=== PATIENT | female | born 1975 | race Caucasian/White ===

== ENCOUNTER 2023-11-21 14:48 | Outpatient (AMB) | payer BC, SELFPAY ==
--- NOTE | 2023-11-21 14:05 | MHC.PC.OV ---
Vital Signs 11/21/23 14:57 Height 5 ft 5 in BP 132/86 Blood Pressure Location Lt brachial Position Sitting Respiration 18 Pulse 97 Pulse Source Pulse Oximeter Temp 98.1 F Temp Source Oral Pulse Oximetry (%) 98 Oxygen Delivery Method Room Air Intake Visit Reasons: ROUTER OPERATOR RADIAL, back and pelvic pain Intake Note: New patient visit Director Of Logistics Required: No Allergies amoxicillin Allergy (Unknown, Verified 11/21/23 15:11) Unknown Tobacco use date assessed: 11/21/23 Dental Screening Dental Screen Date: 11/21/23 Did you have a dental visit in the last 12 months?: Yes Did you have a dental problem in the last 6 months where you did not have access to dental care?: No Was dental information given to patient?: Patient has dentist HPI HPI Comments History of Present Illness Details 48 year old female with a past medical history of chronic back pain, insomnia, anxiety presenting for follow up Patient has history of chronic back pain. Is on chronic opioid therapy. Has seen spine, physiatry and neurosurgery in the past. Is scheduled/plans to see plastic surgery/adolescent medicine specialist, continues to see PSS, requests visit with Dr Diaz. Has been told she needs MRI with contrast. Anxiety/insomnia well controlled on current medications PFSH Medical History (Updated 11/23/23 @ 10:58 by Edilia Cespedes MD) Tarlov cysts Insomnia History of COVID-19 Chronic low back pain Anxiety Surgical History (Updated 11/21/23 @ 14:08 by Kia Felder CMA) History of bilateral breast implants Status post lumbar surgery Family History (Updated 11/21/23 @ 14:10 by Kia Felder CMA) Father Colonic polyp Stroke Social History Housing: House Patient Tobacco Use Status: Never used Tobacco e-Cigarette/Vaping Use: Never Used service: No Current occupational status: employed Current occupation: Administrative Current occupational exposures/hazards: No Cognitive needs: No Hearing needs: No Vision needs: No Questionnaire PHQ-9 Over the last 2 weeks, how often have you been bothered by any of the following problems? 1. Little interest or pleasure in doing things: not at all 2. Feeling down, depressed, or hopeless: more than half the days 3. Trouble falling or staying asleep, or sleeping too much: nearly every day 4. Feeling tired or having little energy: several days 5. Poor appetite or overeating: several days 6. Feeling bad about yourself - or that you are a failure or have let yourself or your family down: several days 7. Trouble concentrating on things, such as reading the newspaper or watching television: several days 8. Moving or speaking so slowly that other people could have noticed. Or the opposite - being so fidgety or restless that you have been moving around a lot more than usual: not at all 9. Thoughts that you would be better off or of hurting yourself in some way: not at all Total score: 9 Depression Screening Interpretation: Positive Depression Screening Follow-up: Declines treatment Depression Screening Done: Yes 40795 - PHQ-9 Billing: Yes Source: Developed by Drs. Devonte Caraballo, Gypsy Smith, Jose Juan Hernandez and colleagues, with an educational nasrin from [employer]. Thrive Questionnaire Date Thrive assessed: 11/21/23 I am a: Patient What is your living situation today?: I have a steady place to live Within the past 12 months, did the food you bought not last and you didn't have the money to get more?: Never true Within the past 12 months, did you worry whether your food would run out before you got money to buy more?: Never true Do you have trouble paying for medicines?: No Do you have trouble getting transportation to medical appointments?: No Do you have trouble paying your heating and electricity bill?: No Do you have trouble taking care of your child, family member or friend?: No Do you have trouble with day-to-day activities such as bathing, preparing meals, shopping, managing finances, etc.?: No Are you currently unemployed and looking for a job?: No Are you interested in more education?: No Please select the resources that you would like help with: None Currently or been in a relationship where the following occur: no concerns reported THRIVE Score: 0 AUDIT C Alcohol Use Questionnaire (AUDIT-C) 1. How often do you have a drink containing alcohol?: Never 3. How often do you have six or more drinks on one occasion?: Never Total Score: 0 HENRY-7 AMB Questionnaire HENRY-7 Date HENRY - 7 assessed: 11/21/23 Feeling nervous, anxious, or on edge: 3 = Nearly every day Not being able to stop or control worryin = Nearly every day Worrying too much about different things: 3 = Nearly every day Trouble relaxin = More than half the days Being so restless that it is hard to sit still: 1 = Several days Becoming easily annoyed or irritable: 1 = Several days Feeling afraid as if something awful might happen: 0 = Not at all Total HENRY-7 score (0-4 normal; 5-9 mild; 10-14 moderate; 15-21 severe): 13 Source: Developed by Drs. Devonte Caraballo, Gypsy Smith, Jose Juan Hernandez and colleagues, with an educational nasrin from [employer]. HENRY-7 Assessment Billing HENRY-7 Assessment Tool: HENRY-7 Assessment 95440 Review of Systems Const Details: see HPI Physical exam (Primary Care) Vital Signs: Last Vital Signs Temp 98.1 F 11/21/23 14:57 Pulse 97 11/21/23 14:57 Resp 18 11/21/23 14:57 BP 132/86 11/21/23 14:57 Pulse Ox 98 11/21/23 14:57 Oxygen Delivery Method Room Air 11/21/23 14:57 PHYSICAL EXAM: GENERAL: Alert and oriented x 3. NAD EYES: EOMI. Anicteric. HENT: Moist mucous membranes. No scleral icterus. No cervical lymphadenopathy. LUNGS: Clear to auscultation bilaterally. CARDIOVASCULAR: Regular rate and rhythm. No murmur. ABDOMEN: Soft, non-tender +bs EXTREMITIES: No edema. Non-tender. SKIN: No rashes or lesions. Warm. NEUROLOGIC: No focal neurological deficits. PSYCHIATRIC: Cooperative. Appropriate mood and affect Tobacco/Smoking Status: Tobacco use Status Tobacco use date assessed 11/21/23 11/21/23 15:04 Patient Tobacco Use Status Never used Tobacco 11/21/23 15:04 e-Cigarette/Vaping Use Never Used 11/21/23 15:04 PHQ-9: PHQ-9 Score PHQ-9: Total score 9 11/21/23 16:15 Depression Screening Interpretation: Positive Depression Screening Follow-up: Declines treatment Thrive Assessment: Date of Thrive Assessment Date Thrive assessed 11/21/23 11/21/23 16:15 Currently or been in a relationship where the following occur: no concerns reported Assessment and Plan Assessment & Plan (1) Low back pain: Code(s): M54.50 - Low back pain, unspecified Qualifiers: Chronicity: chronic Back pain laterality: bilateral Sciatica presence: with sciatica Sciatica laterality: bilateral sciatica Qualified Code(s): M54.42 - Lumbago with sciatica, left side; M54.41 - Lumbago with sciatica, right side; G89.29 - Other chronic pain (2) Peripheral neuropathy: Code(s): G62.9 - Polyneuropathy, unspecified Qualifiers: Peripheral neuropathy type: polyneuropathy, unspecified Qualified Code(s): G62.9 - Polyneuropathy, unspecified (3) Piriformis syndrome of left side: Code(s): G57.02 - Lesion of sciatic nerve, left lower limb Orders: Orders Complete Blood Count Auto Diff 11/21/23 F41.9 - Anxiety disorder, unspecified, G89.4 - Chronic pain syndrome, M35.3 - Polymyalgia rheumatica, Z13.0 - Encounter for screening for diseases of the blood and blood-forming organs and certain disorders involving the immune mechanism, Z13.220 - Encounter for screening for lipoid disorders REZA Reflex Titer and Pattern 11/21/23 F41.9 - Anxiety disorder, unspecified, G89.4 - Chronic pain syndrome, M35.3 - Polymyalgia rheumatica, Z13.0 - Encounter for screening for diseases of the blood and blood-forming organs and certain disorders involving the immune mechanism, Z13.220 - Encounter for screening for lipoid disorders Erythrocyte Sedimentation Rate 11/21/23 F41.9 - Anxiety disorder, unspecified, G89.4 - Chronic pain syndrome, M35.3 - Polymyalgia rheumatica, Z13.0 - Encounter for screening for diseases of the blood and blood-forming organs and certain disorders involving the immune mechanism, Z13.220 - Encounter for screening for lipoid disorders Lyme IgG/IgM w/reflex to WB 11/21/23 F41.9 - Anxiety disorder, unspecified, G89.4 - Chronic pain syndrome, M35.3 - Polymyalgia rheumatica, Z13.0 - Encounter for screening for diseases of the blood and blood-forming organs and certain disorders involving the immune mechanism, Z13.220 - Encounter for screening for lipoid disorders Urine Culture 11/21/23 N39.0 - Urinary tract infection, site not specified MR lumbar spine wo/w con 11/21/23 G57.02 - Lesion of sciatic nerve, left lower limb Comprehensive Met. Panel 11/21/23 F41.9 - Anxiety disorder, unspecified, G89.4 - Chronic pain syndrome, M35.3 - Polymyalgia rheumatica, Z13.0 - Encounter for screening for diseases of the blood and blood-forming organs and certain disorders involving the immune mechanism, Z13.220 - Encounter for screening for lipoid disorders Lipid Panel 11/21/23 F41.9 - Anxiety disorder, unspecified, G89.4 - Chronic pain syndrome, M35.3 - Polymyalgia rheumatica, Z13.0 - Encounter for screening for diseases of the blood and blood-forming organs and certain disorders involving the immune mechanism, Z13.220 - Encounter for screening for lipoid disorders Referrals Orthopedics Referral F41.9 - Anxiety disorder, unspecified, G57.02 - Lesion of sciatic nerve, left lower limb, G89.4 - Chronic pain syndrome, M35.3 - Polymyalgia rheumatica, Z13.0 - Encounter for screening for diseases of the blood and blood-forming organs and certain disorders involving the immune mechanism, Z13.220 - Encounter for screening for lipoid disorders Orthopedics Referral G57.02 - Lesion of sciatic nerve, left lower limb, G62.9 - Polyneuropathy, unspecified, M54.50 - Low back pain, unspecified Plastic Surgery Referral G57.02 - Lesion of sciatic nerve, left lower limb, G62.9 - Polyneuropathy, unspecified Medications: New hydroxyzine HCl 50 mg PO BID 180 tabs 3RF 90 days Coding Level of Care Code Tele Est Pt Level 4 (40605) Diagnoses Chronic bilateral low back pain with bilateral sciatica M54.42; M54.41; G89.29 Chronicity: chronic Back pain laterality: bilateral Sciatica presence: with sciatica Sciatica laterality: bilateral sciatica Peripheral polyneuropathy G62.9 Peripheral neuropathy type: polyneuropathy, unspecified Piriformis syndrome of left side G57.02 Additional Codes HENRY-7 Assessment Billing - HENRY-7 Assessment Tool: HENRY-7 Assessment 88962 ([id number])
[2023-11-21 14:57] VITALS: BP 132/86; PULSE 97; RESP 18; TEMP 36.7; O2SAT 98
== END 2023-11-21 15:22 | disposition home or self-care (01) ==
PROVIDERS: PCP Internal Medicine; Visit Provider Internal Medicine
DX: M54.42 Lumbago with sciatica, left side (principal); M54.41 Lumbago with sciatica, right side; G89.29 Other chronic pain; G62.9 Polyneuropathy, unspecified; G57.02 Lesion of sciatic nerve, left lower limb
CPT/HCPCS: 99214

== ENCOUNTER 2024-02-09 08:26 | Outpatient (AMB) | payer BC, SELFPAY ==
--- NOTE | 2024-02-09 08:29 | MHC.PC.OV ---
Vital Signs 02/09/24 08:34 Height 5 ft 5 in Weight 166 lb BMI 27.6 BP 122/80 Blood Pressure Location Rt brachial Position Sitting Pulse 83 Pulse Source Pulse Oximeter Pulse Oximetry (%) 99 Oxygen Delivery Method Room Air Intake Visit Reasons: CPE Intake Note: Jenny is a 49 year old female who presents to the office today for a CPE. Allergies amoxicillin Allergy (Unknown, Verified 02/09/24 08:29) Unknown Tobacco use date assessed: 02/09/24 Dental Screening Dental Screen Date: 02/09/24 Did you have a dental visit in the last 12 months?: Yes Did you have a dental problem in the last 6 months where you did not have access to dental care?: Yes Was dental information given to patient?: Patient has dentist HPI HPI Comments History of Present Illness Details 49 year old female with a past medical history of chronic back pain, insomnia, anxiety presenting for physical exam Patient has history of chronic back pain. Is on chronic opioid therapy. Has seen spine, physiatry and neurosurgery in the past. Is scheduled/plans to see plastic surgery/transportation maintenance specialist, continues to see PSS, requests visit with Dr Diaz. Has been told she needs MRI with contrast. Previous MRI in [facility] Anxiety/insomnia well controlled on current medications Mammo-Jul 2023. DXA Colon cancer screening: Colonoscopy Wills 2021 INSPECTOR OUTSIDE STEAM DISTRIBUTION: Edilia ZAMUDIO CONSTITUTIONAL: Denies weight loss, fever and chills. HEENT: Denies changes in vision and hearing. RESPIRATORY: Denies SOB and cough. CV: Denies palpitations and CP GI: Denies abdominal pain, nausea, vomiting and diarrhea. : Denies dysuria and urinary frequency. MSK: Denies new myalgia and joint pain. SKIN: Denies rash and pruritus. NEUROLOGICAL: Denies headache PSYCHIATRIC: Denies recent changes in mood. PHYSICAL EXAM: GENERAL: Alert and oriented x 3. NAD EYES: EOMI. Anicteric. HENT: Moist mucous membranes. No scleral icterus. No cervical lymphadenopathy. LUNGS: Clear to auscultation bilaterally. CARDIOVASCULAR: Regular rate and rhythm. No murmur. No JVD. ABDOMEN: Soft, non-tender +bs EXTREMITIES: No edema. Non-tender. SKIN: No rashes or lesions. Warm. NEUROLOGIC: No focal neurological deficits. CN II-XII grossly intact PSYCHIATRIC: Cooperative. Appropriate mood and affect [facility] Medical History (Updated 02/22/24 @ 05:28 by Edilia Cespedes MD) Tarlov cysts Insomnia History of COVID-19 Chronic low back pain Anxiety Surgical History History of bilateral breast implants Status post lumbar surgery Family History Father Colonic polyp Stroke Social History Housing: House Patient Tobacco Use Status: Never used Tobacco e-Cigarette/Vaping Use: Never Used service: No Current occupational status: employed Current occupation: Administrative Current occupational exposures/hazards: No Cognitive needs: No Hearing needs: No Vision needs: No Questionnaire PHQ-9 Over the last 2 weeks, how often have you been bothered by any of the following problems? 1. Little interest or pleasure in doing things: not at all 2. Feeling down, depressed, or hopeless: more than half the days 3. Trouble falling or staying asleep, or sleeping too much: nearly every day 4. Feeling tired or having little energy: several days 5. Poor appetite or overeating: several days 6. Feeling bad about yourself - or that you are a failure or have let yourself or your family down: several days 7. Trouble concentrating on things, such as reading the newspaper or watching television: several days 8. Moving or speaking so slowly that other people could have noticed. Or the opposite - being so fidgety or restless that you have been moving around a lot more than usual: not at all 9. Thoughts that you would be better off or of hurting yourself in some way: not at all Total score: 9 Depression Screening Interpretation: Positive Depression Screening Follow-up: Declines treatment Depression Screening Done: Yes 20617 - PHQ-9 Billing: Yes Source: Developed by Drs. Devonte Caraballo, Gypsy Smith, Jose Juan Hernandez and colleagues, with an educational nasrin from [employer]. Thrive Questionnaire Date Thrive assessed: 02/09/24 I am a: Patient What is your living situation today?: I have a steady place to live Within the past 12 months, did the food you bought not last and you didn't have the money to get more?: Never true Within the past 12 months, did you worry whether your food would run out before you got money to buy more?: Never true Do you have trouble paying for medicines?: No Do you have trouble getting transportation to medical appointments?: No Do you have trouble paying your heating and electricity bill?: No Do you have trouble taking care of your child, family member or friend?: No Do you have trouble with day-to-day activities such as bathing, preparing meals, shopping, managing finances, etc.?: No Are you currently unemployed and looking for a job?: No Are you interested in more education?: No Please select the resources that you would like help with: None THRIVE Score: 0 AUDIT C Alcohol Use Questionnaire (AUDIT-C) 1. How often do you have a drink containing alcohol?: Never 3. How often do you have six or more drinks on one occasion?: Never Total Score: 0 HENRY-7 AMB Questionnaire HENRY-7 Date HENRY - 7 assessed: 02/09/24 Feeling nervous, anxious, or on edge: 3 = Nearly every day Not being able to stop or control worryin = Nearly every day Worrying too much about different things: 3 = Nearly every day Trouble relaxin = More than half the days Being so restless that it is hard to sit still: 1 = Several days Becoming easily annoyed or irritable: 1 = Several days Feeling afraid as if something awful might happen: 0 = Not at all Total HENRY-7 score (0-4 normal; 5-9 mild; 10-14 moderate; 15-21 severe): 13 Source: Developed by Drs. Devonte Caraballo, Gypsy Smith, Jose Juan Hernandez and colleagues, with an educational nasrin from [employer]. HENRY-7 Assessment Billing HENRY-7 Assessment Tool: HENRY-7 Assessment 26768 Physical exam (Primary Care) Vital Signs: Last Vital Signs Pulse 83 02/09/24 08:34 BP 122/80 02/09/24 08:34 Pulse Ox 99 02/09/24 08:34 Oxygen Delivery Method Room Air 02/09/24 08:34 BMI result Body Mass Index 27.6 Tobacco/Smoking Status: Tobacco use Status Tobacco use date assessed 02/09/24 02/09/24 08:37 Patient Tobacco Use Status Never used Tobacco 02/09/24 08:37 e-Cigarette/Vaping Use Never Used 02/09/24 08:37 PHQ-9: PHQ-9 Score PHQ-9: Total score 9 02/22/24 05:29 Depression Screening Interpretation: Positive Depression Screening Follow-up: Declines treatment Thrive Assessment: Date of Thrive Assessment Date Thrive assessed 02/09/24 02/09/24 08:37 Assessment and Plan Assessment & Plan (1) Physical exam: Code(s): Z00.00 - Encounter for general adult medical examination without abnormal findings Plan: Preventive measures for age discussed (2) Low back pain: Code(s): M54.50 - Low back pain, unspecified Qualifiers: Back pain laterality: bilateral Chronicity: chronic Sciatica laterality: bilateral sciatica Sciatica presence: with sciatica Qualified Code(s): M54.42 - Lumbago with sciatica, left side; M54.41 - Lumbago with sciatica, right side; G89.29 - Other chronic pain (3) Piriformis syndrome of left side: Code(s): G57.02 - Lesion of sciatic nerve, left lower limb Medications: Changed From hydroxyzine HCl 50 mg PO BID 90 days 180 tabs 3RF To hydroxyzine HCl 50 mg PO QID 360 tabs 3RF 90 days From baclofen 10 mg PO TID 90 days PRN 270 tabs 1RF for muscle spasm To baclofen 20 mg (2 x 10 mg) PO TID PRN 540 tabs 3RF for muscle spasm 90 days Refilled zolpidem 10 mg PO BEDTIME PRN 28 tabs 0RF insomnia 28 days Coding Level of Care Code Est Pt Prev Care 40-64y(15991) Diagnoses Physical exam Z00.00 Chronic bilateral low back pain with bilateral sciatica M54.42; M54.41; G89.29 Back pain laterality: bilateral Chronicity: chronic Sciatica laterality: bilateral sciatica Sciatica presence: with sciatica Piriformis syndrome of left side G57.02 Additional Codes HENRY-7 Assessment Billing - HENRY-7 Assessment Tool: HENRY-7 Assessment 74694 ([id number])
[2024-02-09 08:34] VITALS: BP 122/80; PULSE 83; O2SAT 99; BMI 27.6
== END 2024-02-09 09:11 | disposition home or self-care (01) ==
PROVIDERS: PCP Internal Medicine; Visit Provider Internal Medicine
DX: Z00.00 Encounter for general adult medical examination without abnormal findings (principal); M54.42 Lumbago with sciatica, left side; M54.41 Lumbago with sciatica, right side; G89.29 Other chronic pain; G57.02 Lesion of sciatic nerve, left lower limb
CPT/HCPCS: 99396

== ENCOUNTER 2024-02-12 08:45 | Outpatient (REF) | payer BC, SELFPAY ==
[2024-02-12 11:11] LABS: MANUAL DIFF FLAG NO
[2024-02-12 11:31] LABS: Basophils Absolute Auto 0.1 X10*3/uL (0.0-0.2); Basophils Percent Auto 1.2 % (0-2); Eosinophils Absolute Auto 0.2 X10*3/uL (0.0-0.4); Eosinophils Percent Auto 4.1 % (0-4); Hematocrit 39.2 % (37.0-47.0); Hemoglobin 13.1 g/dl (12.0-16.0); Imm Gran Abs Auto 0.02 X10*3/uL (0.00-0.03); Imm Gran Pct Auto 0.3 % (0.0-0.4); Lymphocytes Absolute Auto 1.7 X10*3/uL (1.2-4.9); Lymphocytes Percent Auto 29.4 % (20-40); Mean Corpuscular HGB Conc 33.4 g/dl (31.0-35.0); Mean Corpuscular Hemoglobin 31.8 pg (27.0-33.0); Mean Corpuscular Volume 95.1 fL (80.0-98.0); Mean Platelet Volume 9.2 fL (9.4-12.3); Monocytes Absolute Auto 0.4 X10*3/uL (0.1-1.2); Monocytes Percent Auto 6.3 % (2-11); Neutrophils Absolute Auto 3.5 x10*3/uL (2.0-8.3); Neutrophils Percent Auto 58.7 % (45-73); Platelet Count 272 X10*3/uL (160-400); Red Blood Count 4.12 X10*6/uL (4.20-5.50); Red Cell Distribution Width 11.9 % (11.0-16.0); White Blood Count 5.9 X10*3/uL (4.8-10.8)
[2024-02-12 11:44] LABS: Alanine Aminotransferase 22 U/L (0-31); Albumin Level 3.7 g/dL (3.5-5.0); Alkaline Phosphatase 42 U/L (39-117); Anion Gap 11 (12-20); Aspartate Amino Transferase 16 U/L (5-31); Bilirubin Total 0.7 mg/dL (0.0-1.0); Blood Urea Nitrogen 14 mg/dL (9-16); Calcium 9.3 mg/dL (8.4-10.2); Carbon Dioxide 27 mmol/L (22-29); Chloride 105 mmol/L (96-108); Cholesterol 152 mg/dL (<200); Estimated Glomerular Filt Rate > 60; Glucose Random 91 mg/dL (60-115); HDL Cholesterol 44 mg/dL (>40); LDL Cholesterol Calculated 92 mg/dL (<100); Potassium 4.2 mmol/L (3.3-5.1); Sodium 139 mmol/L (135-145); Total Protein 6.3 g/dL (6.5-8.0); Triglycerides 82 mg/dL (<150)
[2024-02-12 12:10] LABS: Erythrocyte Sedimentation Rate 6 MM/HR (0-20)
[2024-02-13 08:33] LABS: Lyme Abs Screen <0.90 index
[2024-02-17 09:04] LABS: Anti Nuclear Antibody Screen NEGATIVE (NEGATIVE)
== END 2024-02-12 08:46 | disposition home or self-care (01) ==
LOC: HO.WFDLDS 08:45
PROVIDERS: Visit Provider Internal Medicine
DX: Z13.0 Encounter for screening for diseases of the blood and blood-forming organs and certain disorders involving the immune mechanism (principal); G89.4 Chronic pain syndrome; F41.9 Anxiety disorder, unspecified; Z13.220 Encounter for screening for lipoid disorders; M35.3 Polymyalgia rheumatica; N39.0 Urinary tract infection, site not specified
CPT/HCPCS: 36415; 80053; 80061; 85025; 85652; 86038; 86617; 86618; 87086

== ENCOUNTER 2024-03-09 14:40 | Outpatient (AMB) | payer BC, SELFPAY ==
--- NOTE | 2024-03-09 14:58 | A.OFFPC_ITS ---
Vital Signs 03/09/24 15:03 BP 124/86 Blood Pressure Location Rt brachial Position Sitting Pulse 98 Pulse Source Pulse Oximeter Pulse Oximetry (%) 98 Oxygen Delivery Method Room Air Intake Visit Reasons: Fu pelvic pain Intake Note: Patient is here to following up for pelvic pain. Patient reports she has a couple of questions for her provider Panel Lay Up Worker Required: No Accompanied by: Self / Same As Patient Allergies amoxicillin Allergy (Unknown, Verified 03/09/24 15:01) Unknown Tobacco use date assessed: 02/09/24 Dental Screening Dental Screen Date: 02/09/24 HPI HPI Comments History of Present Illness Details 49 year old female with a past medical h istory of chronic back pain, insomnia, anxiety presenting for for follow up Recent flare in severity of left piriformis pain. Her medication is not lasting 6 hours. She spends hours a day laying on her stomach because that is the position that the pain feels less. Patient has history of chronic back pain. Is on chronic opioid therapy. Has seen spine, physiatry and neurosurgery in the past. Is scheduled/plans to see plastic surgery/extension service specialist in charge, continues to see PSS. She has chronic pelvic pain, chronic sacral pain h/o S1S2 procedure. Anxiety/insomnia well controlled on current medications Mammo-Jul 2023. DXA Colon cancer screening: Colonoscopy Wills 2021 PNEUMATIC DEICER INSPECTOR: Edilia Hernández upcoming Dr Merissa ZAMUDIO see HPI PHYSICAL EXAM: GENERAL: Alert and oriented x 3. NAD EYES: EOMI. Anicteric. HENT: Moist mucous membranes. No scleral icterus. No cervical lymphadenopathy. LUNGS: Clear to auscultation bilaterally. CARDIOVASCULAR: Regular rate and rhythm. No murmur. No JVD. ABDOMEN: Soft, non-tender +bs MSK: Tender coccyx, left piriformis on palpation. No redness or warmth. EXTREMITIES: No edema. Non-tender. SKIN: No rashes or lesions. Warm. NEUROLOGIC: No focal neurological deficits. CN II-XII grossly intact PSYCHIATRIC: Cooperative. Appropriate mood and affect [facility] Medical History Tarlov cysts Insomnia History of COVID-19 Chronic low back pain Anxiety Surgical History History of bilateral breast implants Status post lumbar surgery Family History Father Colonic polyp Stroke Social History Housing: House Patient Tobacco Use Status: Never used Tobacco e-Cigarette/Vaping Use: Never Used service: No Current occupational status: employed Current occupation: Administrative Current occupational exposures/hazards: No Cognitive needs: No Hearing needs: No Vision needs: No Questionnaire PHQ-9 Over the last 2 weeks, how often have you been bothered by any of the following problems? 1. Little interest or pleasure in doing things: not at all 2. Feeling down, depressed, or hopeless: nearly every day 3. Trouble falling or staying asleep, or sleeping too much: nearly every day 4. Feeling tired or having little energy: not at all 5. Poor appetite or overeating: not at all 6. Feeling bad about yourself - or that you are a failure or have let yourself or your family down: not at all 7. Trouble concentrating on things, such as reading the newspaper or watching television: nearly every day 8. Moving or speaking so slowly that other people could have noticed. Or the opposite - being so fidgety or restless that you have been moving around a lot more than usual: not at all 9. Thoughts that you would be better off or of hurting yourself in some way: not at all Total score: 9 Depression Screening Interpretation: Positive Depression Screening Follow-up: Existing condition Depression Screening Done: Yes 90185 - PHQ-9 Billing: Yes Source: Developed by Drs. Devonte Caraballo, Gyspy Smith, Jose Juan Hernandez and colleagues, with an educational nasrin from [employer]. Thrive Questionnaire Date Thrive assessed: 03/09/24 I am a: Patient What is your living situation today?: I have a steady place to live Within the past 12 months, did the food you bought not last and you didn't have the money to get more?: Never true Within the past 12 months, did you worry whether your food would run out before you got money to buy more?: Never true Do you have trouble paying for medicines?: No Do you have trouble getting transportation to medical appointments?: No Do you have trouble paying your heating and electricity bill?: No Do you have trouble taking care of your child, family member or friend?: I choose not to answer this question THRIVE Score: 0 HENRY-7 AMB Questionnaire HENRY-7 Date HENRY - 7 assessed: 02/09/24 Source: Developed by Drs. Devonte Caraballo, Gypsy Smith, Jose Juan Hernandez and colleagues, with an educational nasrin from [employer]. Physical exam (Primary Care) Vital Signs: Last Vital Signs Pulse 98 03/09/24 15:03 BP 124/86 03/09/24 15:03 Pulse Ox 98 03/09/24 15:03 Oxygen Delivery Method Room Air 03/09/24 15:03 Tobacco/Smoking Status: Tobacco use Status Tobacco use date assessed 02/09/24 03/09/24 15:03 Patient Tobacco Use Status Never used Tobacco 03/09/24 15:03 e-Cigarette/Vaping Use Never Used 03/09/24 15:03 PHQ-9: PHQ-9 Score PHQ-9: Total score 9 03/09/24 15:03 Depression Screening Interpretation: Positive Depression Screening Follow-up: Existing condition Thrive Assessment: Date of Thrive Assessment Date Thrive assessed 03/09/24 03/09/24 15:03 Assessment and Plan Assessment & Plan (1) Coccyx pain: Code(s): M53.3 - Sacrococcygeal disorders, not elsewhere classified Plan: Out of network referral is still pending to Dr Steward Will increase oxycodone to q4h from q6h. Aware of risk of dependence and addiction (2) Piriformis syndrome of left side: Code(s): G57.02 - Lesion of sciatic nerve, left lower limb (3) DDD (degenerative disc disease), lumbosacral: Code(s): M51.37 - Other intervertebral disc degeneration, lumbosacral region Medications: Changed From oxycodone Partial Fill upon patient request. 10 mg PO Q6H PRN 112 tabs 0RF pain To oxycodone Partial Fill upon patient request. 10 mg PO Q4H PRN 168 tabs 0RF pain Refilled zolpidem 10 mg PO BEDTIME 28 days PRN 28 tabs 0RF insomnia Coding Level of Care Code Est Pt Level 4 (42352) Diagnoses Coccyx pain M53.3 Piriformis syndrome of left side G57.02 DDD (degenerative disc disease), lumbosacral M51.37
[2024-03-09 15:03] VITALS: BP 124/86; PULSE 98; O2SAT 98
== END 2024-03-09 16:52 | disposition home or self-care (01) ==
PROVIDERS: PCP Internal Medicine; Visit Provider Internal Medicine
DX: M53.3 Sacrococcygeal disorders, not elsewhere classified (principal); G57.02 Lesion of sciatic nerve, left lower limb; M51.37 Other intervertebral disc degeneration, lumbosacral region
CPT/HCPCS: 99214

== ENCOUNTER 2024-08-17 08:53 | Outpatient (AMB) | payer BC, SELFPAY ==
--- NOTE | 2024-08-17 08:55 | MHC.PC.OV ---
Vital Signs 08/17/24 08:59 Height 5 ft 5 in Weight 169 lb 2 oz BMI 28.1 BP 118/70 Blood Pressure Location Lt brachial Position Sitting Respiration 12 Pulse 77 Pulse Source Pulse Oximeter Temp 97.1 F Temp Source Oral Pulse Oximetry (%) 98 Oxygen Delivery Method Room Air Intake Visit Reasons: f/u meds, bloodwork Intake Note: follow up on meds Assistant Finance Director Required: No Allergies amoxicillin Allergy (Unknown, Verified 08/17/24 08:56) Unknown Tobacco use date assessed: 08/17/24 Dental Screening Dental Screen Date: 08/17/24 Did you have a dental visit in the last 12 months?: No Did you have a dental problem in the last 6 months where you did not have access to dental care?: No Was dental information given to patient?: Patient has dentist HPI HPI Comments History of Present Illness Details 49 year old female with a past medical history of chronic back pain, insomnia, anxiety presenting for for follow up MSK: left piriformis/SI pain, groin. On chronic opioid therapy which helps but pain levels are still often 7-10. She spends hours a day laying on her stomach because that is the position that the pain feels less. Patient has history of chronic back pain. Has seen spine, physiatry and neurosurgery in the past. Is scheduled/plans to see plastic surgery/field property loss specialist in [place], continues to see PSS. She has chronic pelvic pain, chronic sacral pain h/o S1S2 procedure. Anxiety/insomnia well controlled on current medications Mammo-Jul 2023. DXA Colon cancer screening: Colonoscopy Wills 2021 JAVASCRIPT DEVELOPER: Edilia Hernández upcoming Dr Craven ROS see HPI PHYSICAL EXAM: GENERAL: Alert and oriented x 3. NAD EYES: EOMI. Anicteric. HENT: Moist mucous membranes. No scleral icterus. No cervical lymphadenopathy. LUNGS: Clear to auscultation bilaterally. CARDIOVASCULAR: Regular rate and rhythm. No murmur. No JVD. ABDOMEN: Soft, non-tender +bs MSK: Tender coccyx, left piriformis on palpation. No redness or warmth. EXTREMITIES: No edema. Non-tender. SKIN: No rashes or lesions. Warm. NEUROLOGIC: No focal neurological deficits. CN II-XII grossly intact PSYCHIATRIC: Cooperative. Appropriate mood and affect [facility] Medical History Tarlov cysts Insomnia History of COVID-19 Chronic low back pain Anxiety Surgical History History of bilateral breast implants Status post lumbar surgery Family History Father Colonic polyp Stroke Social History Housing: House Patient Tobacco Use Status: Never used Tobacco e-Cigarette/Vaping Use: Never Used service: No Current occupational status: employed Current occupation: Administrative Current occupational exposures/hazards: No Cognitive needs: No Hearing needs: No Vision needs: No Questionnaire PHQ-9 Over the last 2 weeks, how often have you been bothered by any of the following problems? 89452 - PHQ-9 Billing: Patient declined-do not bill Source: Developed by Drs. Devonte Caraballo, Gypsy Smith, Jose Juan Hernandez and colleagues, with an educational nasrin from [employer]. Thrive Questionnaire Date Thrive assessed: 08/17/24 I am a: Patient What is your living situation today?: I have a steady place to live Within the past 12 months, did the food you bought not last and you didn't have the money to get more?: Never true Within the past 12 months, did you worry whether your food would run out before you got money to buy more?: Never true Do you have trouble paying for medicines?: No Do you have trouble getting transportation to medical appointments?: No Do you have trouble paying your heating and electricity bill?: No Do you have trouble taking care of your child, family member or friend?: No Do you have trouble with day-to-day activities such as bathing, preparing meals, shopping, managing finances, etc.?: No THRIVE Score: 0 AUDIT C Alcohol Use Questionnaire (AUDIT-C) 1. How often do you have a drink containing alcohol?: Never Total Score: 0 HENRY-7 AMB Questionnaire HENRY-7 Date HENRY - 7 assessed: 08/17/24 Feeling nervous, anxious, or on edge: 0 = Not at all Not being able to stop or control worryin = Not at all Worrying too much about different things: 1 = Several days Trouble relaxin = Several days Being so restless that it is hard to sit still: 3 = Nearly every day Becoming easily annoyed or irritable: 1 = Several days Feeling afraid as if something awful might happen: 0 = Not at all Total HENRY-7 score (0-4 normal; 5-9 mild; 10-14 moderate; 15-21 severe): 6 Source: Developed by Drs. Devonte Caraballo, Gypsy Smith, Jose Juan Hernandez and colleagues, with an educational nasrin from [employer]. HENRY-7 Assessment Billing HENRY-7 Assessment Tool: HENRY-7 Assessment 31543 Physical exam (Primary Care) Vital Signs: Last Vital Signs Temp 97.1 F 08/17/24 08:59 Pulse 77 08/17/24 08:59 Resp 12 08/17/24 08:59 BP 118/70 08/17/24 08:59 Pulse Ox 98 08/17/24 08:59 Oxygen Delivery Method Room Air 08/17/24 08:59 BMI result Body Mass Index 28.1 Tobacco/Smoking Status: Tobacco use Status Tobacco use date assessed 08/17/24 08/17/24 09:01 Patient Tobacco Use Status Never used Tobacco 08/17/24 09:01 e-Cigarette/Vaping Use Never Used 08/17/24 09:01 Thrive Assessment: Date of Thrive Assessment Date Thrive assessed 08/17/24 08/17/24 09:01 Coding Level of Care Code Est Pt Level 4 (74726) Complex EM visit Add On G2211 Diagnoses Degeneration of intervertebral disc of lumbosacral region with discogenic back pain and lower extremity pain M51.372 Disc-related pain type: discogenic back pain and lower extremity pain Additional Codes HENRY-7 Assessment Billing - HENRY-7 Assessment Tool: HENRY-7 Assessment 48478 ([id number]) Assessment & Plan Assessment & Plan (1) DDD (degenerative disc disease), lumbosacral: Code(s): M51.37 - Other intervertebral disc degeneration, lumbosacral region Category: Medical Qualifiers: Disc-related pain type: discogenic back pain and lower extremity pain Qualified Code(s): M51.372 - Other intervertebral disc degeneration, lumbosacral region with discogenic back pain and lower extremity pain Plan: Suboptimal pain relief. Start morphine 30mg daily 24h Continue oxycodone IR, tramadol (hopefully we can stop the tramadol in the near future) Upcoming computer operations analyst, field property loss specialist consult Orders: Orders Complete Blood Count Auto Diff Today M51.37 - Other intervertebral disc degeneration, lumbosacral region, M53.3 - Sacrococcygeal disorders, not elsewhere classified Comprehensive Met. Panel Today M51.37 - Other intervertebral disc degeneration, lumbosacral region, M53.3 - Sacrococcygeal disorders, not elsewhere classified Medications: New morphine ER Partial Fill upon patient request. 30 mg PO DAILY 28 caps 0RF Refilled tramadol 50 mg PO Q8H PRN 84 tabs 0RF pain hydroxyzine HCl 50 mg PO QID 360 tabs 3RF 90 days
[2024-08-17 08:59] VITALS: BP 118/70; PULSE 77; RESP 12; TEMP 36.2; O2SAT 98; BMI 28.1
--- OUTSIDE RECORDS SUMMARY | 2024-08-17 09:23 | XMS_ITS ---
Author Organization [facility] Address [address] [place] [address] Care Team Providers Care Stereotyper Helper Name Role Phone MARIBEL CEJA Unavailable [phone] QUIN CEJA Unavailable [phone] REASON FOR VISIT Pt presents for sema .25mg inj, tolerated well. Pt stated .5mg inj made her appetite too supressed & wanted to try biweekly injs. MEDICATIONS Medication SIG (Take, Route, Fr equency, Duration) [...] needed for nausea Orally Once a day for 30 days 12/10/2023 Ac tive Encounters Encounter Location Date Provider Diagnosis [facility] [address] [place] [id number] 02/13/2024 QUIN CEJA PLAN OF TREATMENT No Information MEDICATIONS ADMINISTERED Medication Instructions Date of Administration Dosage Notes Semaglutide 02/13/2024 .25 mg Progress Notes * DEV ROQUEDOB: 6 (49 yo F)Acc No.[id number]:02/13/2024 Patient:??DEV ROQUE Provider:??Quin Ceja MD :1975?Age:49 Y?Sex:Fe male Date:02/13/2024 Address:[facility] [address], [facility], [place] Subjective: * Chief Complaints: * ?1. Pt presents for yves a .25mg inj, tolerated well. Pt stated .5mg inj made her appetite too supressed & wanted to try biweekly injs.. * Medical History:?? * Medications:??Taking Probiot ic 250 MG Capsule as directed Orally , [...] for nausea Orally Once a day Objective: Assessment: Plan: * Treatment: * Therapeutic Injections:? Semaglutide : .25 mg (Route: Subcutaneous) given by SERGEY MADRIGAL on subcutaneus * Images: Billing Information: * Visit Code:?? * Procedure Codes:?? * Sign off status: Pending * Provider:??Quin Ceja MD Date:??02/12
--- OUTSIDE RECORDS SUMMARY | 2024-08-17 09:23 | XMS_ITS ---
Author Organization [facility] Address [address] [place] [address] Care Team Providers Care Shovel Oiler Name Role Phone MARIBEL CEJA Unavailable [phone] QUIN CEJA Unavailable [phone] REASON FOR VISIT pt is here for sema 0.5....pt signed consent and left the office in stable condition MEDICATIONS Medication SIG (Take, Route, Fr equency, [...] day for 30 days 12/10/2023 Ac tive traMADol HCl 50 MG 1 tablet as needed O rally Once a day Active oxyCODONE HCl 10 MG 1 tablet as needed O rally every 6 hrs Active Encounters Encounter Location Date Provider Diagnosis [facility] [address] [place] [phone] 02/04/2024 QUIN CEJA PLAN OF TREATMENT No Information MEDICATIONS ADMINISTERED Medication Instructions Date of Administration Dosage Notes Semaglutide 02/04/2024 0.5 mg Progress Notes * DEV ROQUEDOB: 6 (49 yo F)Acc No.[id number]:02/04/2024 Patient:??DEV ROQUE Provider:??Quin Ceja MD :1975?Age:49 Y?Sex:Fe male Date:02/04/2024 Address:[facility] [address], [facility], [place] Subjective: * Chief Complaints: * ?1. Pt is here for sema 0.5....pt signed consent and left the office in stable condition. * Medical History:?? * Medications:??Taking Probiot ic [...] * Treatment: * Therapeutic Injections:? Semaglutide : 0.5 mg (Route: Subcutaneous) given by Ana Rodriguez on subcutaneus * Images: Billing Information: * Visit Code:?? * Procedure Codes:?? * Sign off status: Pending * Provider:??Quin Ceja MD Date:??02/03
--- OUTSIDE RECORDS SUMMARY | 2024-08-17 09:23 | XMS_ITS | Data Portability ---
Author Organization [facility] [address] Address [address] [place] [address] Assessment No assessment recorded. Plan of Treatment Reminders Order Date Submit Date Provider Last Modified By Organization Details Last Modified Time Details Appointments None recorded. Lab None recorded. Referral None recorded. Procedures None recorded. Surgeries None recorded. Imaging None recorded. Medication Orders prednisone 10 mg tablet 2023 024 [id number], [address] [place], [address], 19:24:00 Patient TargetsNo targets recorded. Patient Instructions Encounter Date Encounter Id Patient Instructions Last Modified By Organization Details Last Modified Time 02/20/2024 [id number] acute low back pain: exercises Not available 02/20/2024 21:11:52 low back pain: exercises Not available 02/20/2024 21:11:52 Reason for Referral None Reported. 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 Medical Equipment None Reported. Allergies Allergen ID Allergen Name Allergen Category Reaction Reaction Severity Criticality Documentation Date Start Date Code Code System Note Provider Name and Address Organization Details Recorded Time 232116 amoxicill in medicatio n Not available Not available Not available 02/20/2024 723 [facility] 4 17:03:54 Medications Name Sig Start Date Stop Date Status Note LastModified by Organization Details LastModified Time prednisone 10 mg tablet PLEASE SEE ATTACHED FOR DETAILED DIRECTION S active Not Available Not Available No t Available senna 8.6 mg tablet TAKE 2 TABLETS BY MOUTH DAILY AT BEDTIME NEEDED FOR CONSTIPAT ION active Not Available Not Available No t Available ondansetron HCl 4 mg tablet TAKE 1 TABLET BY MOUTH DAILY NEEDED FOR NAUSEA active Not Available Not Available No t Available prednisone 20 mg tablet TAKE 3 TABS BY MOUTH DAILY FOR 3 DAYS, 2 TABS DAILY FOR 3 DAYS, 1 TAB DAILY FOR 3 DAYS 02/19 completed Not Available Not Available Not Available hydroxyzine HCl 50 mg tablet TAKE 1 TABLET BY MOUTH FOUR TIMES A DAY FOR 90 DAYS active Not Available Not Available No t Available sulfamethox azole 800 mg-trimetho prim 160 mg tablet TAKE 1 TABLET BY MOUTH TWICE A DAY FOR 5 DAYS active Not Available Not Available No t Available tramadol 50 mg tablet TAKE 1 TABLET ORALLY EVERY 8 HOURS NEEDED FOR PAIN active Not Available Not Available No t Available oxycodone-a cetaminophe n 10 mg-325 mg tablet TAKE 1 TABLET BY MOUTH EVERY 6 HOURS FOR 28 DAYS NEEDED FOR PAIN 02/19 completed Not Available Not Available Not Available phenazopyri dine 100 mg tablet TAKE 1 TABLET BY MOUTH 3 TIMES A DAY WITH FOOD FOR 3 DAYS active Not Available Not Available No t Available baclofen 10 mg tablet TAKE 2 TABLETS BY MOUTH 3 TIMES A DAY NEEDED FOR MUSCLE SPASMS FOR 90 DAYS 02/19 completed Not Available Not Available Not Available diclofenac sodium 75 mg tablet,sami yed release TAKE 1 TABLET BY MOUTH TWICE A DAY 02/19 completed Not Available Not Available Not Available lorazepam 1 mg tablet TAKE 1 TAB ONE HOUR PRIOR TO INJECTION NEEDED FOR ANXIETY active Not Available Not Available No t Available estradiol 0.01% (0.1 mg/gram) vaginal cream INSERT 1/2 GM VAGINALLY DAILY AT BEDTIME X14 DAYS, THEN 1/2GM 2-3 NIGHTS PER WEEK FOR MAINTENEN CE active Not Available Not Available No t Available zolpidem 10 mg tablet TAKE 1 TABLET BY MOUTH BEDTIME NEEDED FOR INSOMNIA FOR 28 DAYS active Not Available Not Available No t Available nitrofurant oin monohydrate /macrocryst als 100 mg capsule TAKE 1 CAPSULE BY MOUTH EVERY 12 HOURS FOR 7 DAYS MUST ADMINISTE R WITH A MEAL/FOOD active Not Available Not Available No t Available duloxetine 20 mg capsule,del ayed release TAKE 1 CAPSULE BY MOUTH TWICE A DAY active Not Available Not Available No t Available oxycodone 10 mg tablet TAKE 1 TABLET ORALLY EVERY 6 HOURS NEEDED FOR PAIN active Not Available Not Available No t Available Vitals Date Recorded Oxygen saturation Oxygen saturation in Arterial blood by Pulse oximetry Heart rate Respiratory rate Pain severity - 0-10 verbal numeric rating [Score] - Reported Body weight Systolic blood pressure Diastolic blood pressure Provider Name and Address Organization Details Last Updated DateTime 96 % 96 % 95 /min 20 /min 10 81622.9 6 g 130 mm[Hg] 91 mm[Hg] Mikaela CHISHOLM [facility] 17:06:20 Social History Question Answer Notes LastModified by [employer] ion Details LastModified Time Tobacco Smoking Status Never Smoker [facility] [employer] [facility] 02/20/2024 17:05:04 What Is Your Level Of Alcohol Consumption? None Information not available 02/20/2024 Have You Had A Flu Shot This Season? N/A Information not available 02/20/2024 If No, Would You Like A Flu Shot Today? No Information not available 02/20/2024 What Is Your Relationship Status? Unknown Information not available 02/20/2024 Do You Use Any Illicit Or Recreational Drugs? No Information not available 02/20/2024 Have You Recently Traveled Abroad? No Information not available 02/20/2024 Do You Or Have You Ever Used Any Other Forms Of Tobacco Or Nicotine? No Information not available 02/20/2024 Sex: Unknown Functional Status None recorded. Mental Status None recorded. Family History Relationship Description Onset Age of this Age Resolved Age Notes LastModified by Organization Details LastModified Time Father No current problems or disability Not available 02/19 17:04:50 Mother No current problems or disability Not available 02/19 17:04:50 Medical History No medical history recorded. Gynecological History Statement/Question Response Date of LMP 02/06/2024 Is there any chance of ? No LMP Approximate Obstetrics History GPAL:G 0 P 0 0 0 0 Immunizations Vaccine Type Date Status Note Provider Percy lawson and Address Organization Details Recorded Time COVID-19, mRNA, LNP-S, PF, 30 mcg/0.3 mL dose 02/09/2021 completed Mikaelajovan iqbal, PA - [facility] 02/20/2024 17:01:45 COVID-19, mRNA, LNP-S, PF, 30 mcg/0.3 mL dose 03/02/2021 completed Mikaela Mccall null, PA - [facility] 02/20/2024 17:01:45 Tdap 12/24/2019 completed Mikaelajovan iqbal, PA - [facility] 02/20/2024 17:01:45 Hep B, adult 12/19/2016 completed Mikaelajovan clay null, PA - [facility] 02/20/2024 17:01:45 Past Encounters Encounter ID Performer Location Encounter Start Date Encounter Closed Date Diagnosis/Indication Diagnosis SNOMED-CT Code Diagnosis ICD10 Code Diagnosis Note [id number] [facility] [address] [address] 07/19/2017 14:10:22 07/19/2017 16:01:10 [id number] [address] [address] 05/12/2019 14:47:35 05/12/2019 16:19:56 [id number] Luna Alvarez [facility] [address] [address] [address] 02/20/2024 16:31:34 02/20/2024 17:36:21 Low back pain co-occurrent with neuralgia of left sciatic nerve [id number] M54.42 Your urine test had few white blood cellsAt this time an antibiotic is not indicated .The following are recommenda tions to help with your symptoms and recovery:1 . Drink Plenty of fluids - Stay hydrated2. I recommend starting a Probiotic - I recommend Florastor3 . If you take Azo - this will help the burning and urgency feeling - just be aware it will turn your urine bright yellow. I would not hesitate to be seen again if you develop:1. Severe Back Pain2. Abdominal Pain3. Nausea and Vomiting4. Vaginal Discharge or Bleeding5. Fever > 101.0.For your back :Do the exercises that I gave you. The following are my recommenda tions to help with your symptoms:1 . Heating pad to the back of the back2. Stretch your back and hip regularly3 . Try to sleep in flat position to not aggravate your back .4. It is ok to Take Tylenol and ibuprofen with what I gave you5. I advise applying some topical Aspircream I would give this a solid 1-2 weeks to start to improve. If at this time you still aren't feeling better. I would suggest a follow up visit. Please go immediatel y to the Emergency room if you develop any:1. Shortness of breath2. Coughing up blood3. Significan t chest pain4. or Dizziness. light headedness If a urine culture was sent out to the lab for you we should get the results back within 4 days. This will be able to prove that your symptoms are caused by a UTI and if positive we will prescribe an antibiotic Thank you for using [facility] - please don't hesistate to call our office if you have any questions or concerns. Health Concerns Section Related Observation LastModified by Organization Detai ls LastModified Time None Recorded Concern Status LastModified by Organization Details LastModified Time None Recorded Advance Directives Directive None Recorded Payers Encounter Date Sequence Insurance Name Policy Number Policy Stokes Covered Member ID Stokes Member ID Guarantor Name 07/19/2017 1 [facility] [id number] Armando Staley [id number] Jennyjaylan Staley 05/12/2019 1 [facility] [id number] Armando Staley [id number] Jennyjaylan Staley 02/20/2024 1 [facility] [id number] Armando Staley [id number] Jenny Staley Notes Date Note Type Note Provider Name and Address Organization Details Recorded Time 4 text/html Back Pain / InjuryReported bypatient.source of patient informationInformation obtained from patient; Patient arrived at Urgent Care ambulatory Location:lower back;pain radiating to the buttocks Quality:tightness;muscle spasms Severity:pain level 7/10;interference with sleep;interference with work Duration:3 days; acute on chronic Alleviating Factors:analgesics; chiropractor; relieved by changing position Aggravating Factors:bending/squatting;b ending over/standing up;movement/positioning;sit ting;standing;twisting;walk ing Prior Imaging:none Patient has chronic back pain since 2017. has been managed at the pain clinic. her regular doctor is on vacation . pain is usually severe and radiates to her eft buttock, similar to today. had surgery a few years ago to remove cysts on the spine of the lower back. states that pain usually improves with steroids . Luna Alvarez NP [address] [place], [address], [place] - [facility] 02/20/2024 21:12:20 OBGyn Episode No OBEpisode recorded.
--- OUTSIDE RECORDS SUMMARY | 2024-08-17 09:23 | XMS_ITS ---
Author Organization [facility] Address [address] [place] [address] Care Team Providers Care Dental Appliance Repairer Name Role Phone MARIBEL CEJA Unavailable [phone] QUIN CEJA Unavailable [phone] Encounters Encounter Location Date Provider Diagnosis [facility] [address] [place] [address] 02/18/2024 QUIN CEJA PLAN OF TREATMENT No Information Progress Notes * DEV ROQUEDOB: 6 (49 yo F)Acc No.[id number]:02/18/2024 Patient:??DEV ROQUE Provider:??Quin Ceja MD :1975?Age:49 Y?Sex:Fe male Date:02/18/2024 [address] [place] Subjective: * Chief Complaints: * ? * Medical History:?? Objective: Assessment: Plan: * Treatment: * Images: Billing Information: * Visit Code:?? * Procedure Codes:?? * Sign off status: Pending * Provider:??Quin Ceja MD Date:??02/17
--- OUTSIDE RECORDS SUMMARY | 2024-08-17 09:23 | XMS_ITS | Patient Health Record ---
Author Organization [email or web address] [facility] Address [address] [place] [address] Care Team Providers Care On Awake Counselor Name Role Phone MARIBEL AMARO Unavailable [phone] AMAROMARIKA MOYER Unavailable [phone] RANDAL AVENDANO Unavailable [phone] ALLERGIES No Known Allergies REASON FOR REFERRAL No Information MEDICATIONS Medication SIG (Take, Route, Fr equency, Duration) Notes Start Date End Date Status traMADol HCl 50 MG 1 tablet as needed O rally Once a day Active oxyCODONE HCl 10 MG 1 tablet as needed O rally every 6 hrs Active Ondansetron HCl 4 MG 1 tablet as needed for nausea Orally Once a day for 30 days 12/10/2023 Ac tive Glucosamine 750 MG as directed Orally Active Probiotic 250 MG as directed Orally Active Cymbalta 20 MG 1 capsule Orally Twice a day Active Iron 325 (65 Fe) MG 1 tablet Orally Thre e times a Week Active Baclofen 10 MG 1 tablet as needed O rally Twice a day Active SOCIAL HISTORY Tobacco Use: Social History Observation Description Date Details (start date - stop date) Never Smoker NA - NA Sex Assigned At : Social History Observation Description Sex Assigned At Unknown Tobacco Use/Smoking Question Answer Notes Are you a nonsmoker PROBLEMS Problem Type ICD Code Onset Dates Problem Status W/U Status Risk SNOMED Code Notes Problem Vitamin D deficiency, unspecified (E55.9) Active confirmed 19281951 Problem Other obesity (E66.8) Active confirmed Obesity (856974811) Problem Encounter for general adult medical examination without abnormal findings (Z00.00) Active confirmed 371387536 Problem BMI 31.0-31.9,adult (Z68.31) Active confirmed Body mass index 30.00 to 34.99 (836027890759 107) VITAL SIGNS Heart Rate 80 /min 12/10/2023 Oximetry 97 % 12/10/2023 Blood pressure diastolic 90 mm Hg 12/10/2023 Height 64 in 12/10/2023 Blood pressure systolic 130 mm Hg 12/10/2023 Weight 168.9 lbs 12/10/2023 BMI 28.99 kg/m2 12/10/2023 Encounters Encounter Location Date Provider Diagnosis [facility] [address] [place] [address] 08/19/[address] [facility] [address] [place] [address] 08/27/[address] [facility] [address] [place] [address] 09/05/[address] [facility] [address] [place] [address] 09/12/[address] [facility] [address] [place] [address] 09/24/[address] [facility] [address] [place] [address] 09/25/2023 MARIBEL AMARO [facility] [address] [place] [address] 09/30/[address] [facility] [address] [place] [address] 10/03/[address] [facility] [address] [place] [address] 10/06/[address] [facility] [address] [place] [address] 10/13/[address] [facility] [address] [place] [address] 10/21/[address] [facility] [address] [place] [address] 10/27/[address] [facility] [address] [place] [address] 12/24/[address] [facility] [address] [place] [address] 12/31/[address] [facility] [address] [place] [address] 01/05/[address] [facility] [address] [place] [address] 01/12/[address] [facility] [address] [place] [address] 01/21/[address] [facility] [address] [place] [address] 01/26/[address] [facility] [address] [place] [address] 02/04/[address] [facility] [address] [place] [address] 02/04/[address] [facility] [address] [place] [address] 02/13/[address] [facility] [address] [place] [address] 02/18/[address] [place] [address] 09/16/2023 TALMARISSA AMARO Other obesity E66.8 ; Body mass index [BMI] 29.0-29.9, adult Z68.29 and Back pain with radiculopathy M54.[address] [facility] [address] [place] [address] 12/10/2023 TALMARISSA AMARO Back pain with radiculopathy M54.10 and Overweight (BMI 25.0-29.9) E66.[address] [place] [address] 08/19/2023 [facility] [address] [place] [address] 08/27/2023 NID AMARO [address] [place] [address] 09/16/[address] [place] [address] 11/14/2023 TALAL AMARO [address] [place] [address] 11/17/[address] [facility] [address] [place] [address] 12/08/[address] [place] [address] 12/08/2023 MARIKA AMARO [facility] [address] [place] [address] 12/10/2023 MARIKA AMARO [facility] [address] [place] [address] 12/24/2023 MARIKA AMARO ASSESSMENTS Encounter Date Diagnosis Assessment Notes Treatment Notes Treatment Clinical Notes Section Notes 09/16/2023 Other obesity (ICD-10 - E66.8) 48-year-old with PMH of spinal surgery presents for weight management follow-up. #Chronic history of back pain since 2016, on pain medications, neurosurgery for spinal cysts for nerve compression in 2018. Patient follows with [facility] and receives pain management medications through [facility]. #BMI 29: Patient has been successful, losing 10 lbs since last visit. She is on semaglutide 0.25 mg weekly injections. Patient informed she can increase dose whenever she pleases. She has difficulty with weight lifting due to back pain, noted above. Advised to keep doing what she is doing, such as walking and upper body resistance training. Advised to continue following a high protein diet. Patient endorses mild, occasional nausea but declines medication for this. She is informed to call the office if she decides to address the nausea in the future. Semaglutide 0.25 mg injection administered today. Plan to follow-up in September for re-evaluation. Advised to call the office sooner if new symptoms arise. 09/16/2023 Body mass index [BMI] 29.0-29.9, adult (ICD-10 - Z68.29) 48-year-old with PMH of spinal surgery presents for weight management follow-up. #Chronic history of back pain since 2016, on pain medications, neurosurgery for spinal cysts for nerve compression in 2018. Patient follows with [facility] and receives pain management medications through [facility]. #BMI 29: Patient has been successful, losing 10 lbs since last visit. She is on semaglutide 0.25 mg weekly injections. Patient informed she can increase dose whenever she pleases. She has difficulty with weight lifting due to back pain, noted above. Advised to keep doing what she is doing, such as walking and upper body resistance training. Advised to continue following a high protein diet. Patient endorses mild, occasional nausea but declines medication for this. She is informed to call the office if she decides to address the nausea in the future. Semaglutide 0.25 mg injection administered today. Plan to follow-up in September for re-evaluation. Advised to call the office sooner if new symptoms arise. 12/10/2023 Overweight (BMI 25.0-29.9) (ICD-10 - E66.3) #overweight: Pt will be switched to Zep Bound 2.5 mg injection every other week. First injection will be given today. Pt should have less constipation and nausea. Previous nausea and constipation most likely due to slower gastric motility side effects of both opiods and Sema. Will also be prescribed Zofran prn nausea. Pt instructed to continue with her diet and exercise as it was working well in the past. Pt doing well from medical perspective, overweight BMI at 28.99, but is determined to lose more weight. Will see patient in march of 2024 to reasses weight loss and SECA #Back pain: Pt follows up with [facility] and [email or web address] for pain managment. Takes all pain meds as prescribed. Pt instructed to continue with regiment as prescribed. Pt manages pain well and knows how to exercise without worsening symptoms. 12/10/2023 Back pain with radiculopathy (ICD-10 - M54.10) #overweight: Pt will be switched to Zep Bound 2.5 mg injection every other week. First injection will be given today. Pt should have less constipation and nausea. Previous nausea and constipation most likely due to slower gastric motility side effects of both opiods and Sema. Will also be prescribed Zofran prn nausea. Pt instructed to continue with her diet and exercise as it was working well in the past. Pt doing well from medical perspective, overweight BMI at 28.99, but is determined to lose more weight. Will see patient in march of 2024 to reasses weight loss and SECA #Back pain: Pt follows up with [facility] and [email or web address] for pain managment. Takes all pain meds as prescribed. Pt instructed to continue with regiment as prescribed. Pt manages pain well and knows how to exercise without worsening symptoms. 09/16/2023 Back pain with radiculopathy (ICD-10 - M54.10) 48-year-old with PMH of spinal surgery presents for weight management follow-up. #Chronic history of back pain since 2016, on pain medications, neurosurgery for spinal cysts for nerve compression in 2018. Patient follows with [facility] and receives pain management medications through [facility]. #BMI 29: Patient has been successful, losing 10 lbs since last visit. She is on semaglutide 0.25 mg weekly injections. Patient informed she can increase dose whenever she pleases. She has difficulty with weight lifting due to back pain, noted above. Advised to keep doing what she is doing, such as walking and upper body resistance training. Advised to continue following a high protein diet. Patient endorses mild, occasional nausea but declines medication for this. She is informed to call the office if she decides to address the nausea in the future. Semaglutide 0.25 mg injection administered today. Plan to follow-up in September for re-evaluation. Advised to call the office sooner if new symptoms arise. PLAN OF TREATMENT Pending Test Test Name Order Date COMPREHENSIVE METABOLIC PANEL 07/30/2023 CBC (INCLUDES DIFF/PLT) 07/30/2023 VITAMIN D,25-OH,TOTAL,IA 07/30/2023 Insurance Providers Payer Name Payer Address Payer Phone Subscriber Number Group Number Insured Name Patient Relationship to Insured Coverage Start Date Coverage End Date [facility] [address] [place] [address] [phone] [id number] DEV ROQUE Self - patient is the insured MEDICATIONS ADMINISTERED Medication Instructions Date of Administration Dosage Notes Semaglutide 07/30/2023 0.25 Semaglutide 08/08/2023 0.25 mg Semaglutide 08/19/2023 0.25 mg Semaglutide 08/27/2023 0.25 mg Semaglutide 09/05/2023 0.25 mg Semaglutide 09/16/2023 0.25 mg LRQ SQ Semaglutide 09/25/2023 0.5 Semaglutide 10/06/2023 0.25 mg lot# [id number] 0.25mg Semaglutide 10/13/2023 0.25 Semaglutide 10/21/2023 0.25 mg Semaglutide 01/05/2024 0.25 mg Semaglutide 01/12/2024 0.5 Semaglutide 01/21/2024 0.5 mg Semaglutide 02/04/2024 0.5 mg Semaglutide 02/13/2024 .25 mg Tirzepatide 12/10/2023 2.5 mg LRQ SQ MEDICAL (GENERAL) HISTORY Surgical History Surgery Date(Month/Year) breast implant removal 2 years dami joyner 17 years ago spine surgery
== END 2024-08-17 13:57 | disposition home or self-care (01) ==
PROVIDERS: PCP Internal Medicine; Visit Provider Internal Medicine
DX: M51.372 Other intervertebral disc degeneration, lumbosacral region with discogenic back pain and lower extremity pain (principal)

== ENCOUNTER → 2024-08-17 08:53 | Outpatient (BNVA) | payer BC, SELFPAY | PROVIDERS: PCP Internal Medicine; Visit Provider Internal Medicine | DX: M51.372 Other intervertebral disc degeneration, lumbosacral region with discogenic back pain and lower extremity pain (principal); M53.3 Sacrococcygeal disorders, not elsewhere classified; Z79.891 Long term (current) use of opiate analgesic | CPT/HCPCS: 96127 ==

== ENCOUNTER 2024-11-01 10:26 | Outpatient (AMB) | payer BC, SELFPAY ==
--- NOTE | 2024-11-01 10:30 | A.OFFPC_ITS ---
Vital Signs 11/01/24 10:35 Height 5 ft 5 in Weight 172 lb BMI 28.6 BP 126/88 Blood Pressure Location Rt brachial Position Sitting Respiration 12 Pulse 91 Pulse Source Pulse Oximeter Pulse Oximetry (%) 98 Oxygen Delivery Method Room Air Intake Visit Reasons: 3M Follow Up(schedule physical) Intake Note: Three month follow up. Need Tramadol and prednisone refill. Patient Admitting Representative Required: No Allergies amoxicillin Allergy (Unknown, Verified 11/01/24 10:31) Unknown Tobacco use date assessed: 11/01/24 Dental Screening Dental Screen Date: 08/17/24 Did you have a dental visit in the last 12 months?: No Did you have a dental problem in the last 6 months where you did not have access to dental care?: No Was dental information given to patient?: Patient has dentist HPI HPI Comments History of Present Illness Details 49 year old female with a past medical h istory of chronic back pain, insomnia, anxiety presenting for for follow up MSK: left piriformis/SI pain, groin pain. On chronic opioid therapy which helps but pain levels are still often 7-10. She spends hours a day laying on her stomach because that is the position that the pain feels less. Has seen spine, physiatry and neurosurgery in the past. Had consultation with plastic surgery/media services specialist in [place]. Continues to see PSS. She has chronic pelvic pain, chronic sacral pain. History of cyst removals s1,s2 in 2018. November 10 upcoming PSS. Recent L3-L5 MBB with some resolution of pain Anxiety/insomnia: well controlled on current medications Mammo-Jul 2023. DXA Colon cancer screening: Colonoscopy Wills 2021 HOME SCHOOL LIAISON OFFICER: Edilia Hernández upcoming Dr Craven ROS see HPI PHYSICAL EXAM: GENERAL: Alert and oriented x 3. NAD EYES: EOMI. Anicteric. HENT: Moist mucous membranes. No scleral icterus. No cervical lymphadenopathy. LUNGS: Clear to auscultation bilaterally. CARDIOVASCULAR: Regular rate and rhythm. No murmur. No JVD. ABDOMEN: Soft, non-tender +bs MSK: Tender coccyx, left piriformis on palpation. No redness or warmth. EXTREMITIES: No edema. Non-tender. SKIN: No rashes or lesions. Warm. NEUROLOGIC: No focal neurological deficits. CN II-XII grossly intact PSYCHIATRIC: Cooperative. Appropriate mood and affect PFSH Medical History Tarlov cysts Insomnia History of COVID-19 Chronic low back pain Anxiety Surgical History History of bilateral breast implants Status post lumbar surgery Family History Father Colonic polyp Stroke Social History Housing: House Patient Tobacco Use Status: Never used Tobacco e-Cigarette/Vaping Use: Never Used service: No Current occupational status: employed Current occupation: Administrative Current occupational exposures/hazards: No Cognitive needs: No Hearing needs: No Vision needs: No Questionnaire PHQ-9 Over the last 2 weeks, how often have you been bothered by any of the following problems? 1. Little interest or pleasure in doing things: several days 2. Feeling down, depressed, or hopeless: several days 3. Trouble falling or staying asleep, or sleeping too much: more than half the days 4. Feeling tired or having little energy: several days 5. Poor appetite or overeating: several days 6. Feeling bad about yourself - or that you are a failure or have let yourself or your family down: several days 7. Trouble concentrating on things, such as reading the newspaper or watching television: several days 8. Moving or speaking so slowly that other people could have noticed. Or the opposite - being so fidgety or restless that you have been moving around a lot more than usual: not at all 9. Thoughts that you would be better off or of hurting yourself in some way: not at all Total score: 8 Depression Screening Interpretation: Positive Depression Screening Done: Yes 92712 - PHQ-9 Billing: Yes Source: Developed by Drs. Devonte Caraballo, Gypsy Smith, Jose Juan Hernandez and colleagues, with an educational nasrin from [employer]. Thrive Questionnaire Date Thrive assessed: 11/01/24 What is your living situation today?: I have a steady place to live Within the past 12 months, did the food you bought not last and you didn't have the money to get more?: Never true Within the past 12 months, did you worry whether your food would run out before you got money to buy more?: Never true Do you have trouble paying for medicines?: No Do you have trouble getting transportation to medical appointments?: No Do you have trouble paying your heating and electricity bill?: No Do you have trouble taking care of your child, family member or friend?: No Do you have trouble with day-to-day activities such as bathing, preparing meals, shopping, managing finances, etc.?: No Are you currently unemployed and looking for a job?: No Are you interested in more education?: No Please select the resources that you would like help with: None Currently or been in a relationship where the following occur: I choose not to answer THRIVE Score: 0 AUDIT C Alcohol Use Questionnaire (AUDIT-C) 1. How often do you have a drink containing alcohol?: Monthly or less 2. How many drinks containing alcohol do you have on a typical day when you are drinking?: 1 or 2 3. How often do you have six or more drinks on one occasion?: Never Total Score: 1 HENRY-7 AMB Questionnaire HENRY-7 Date HENRY - 7 assessed: 08/17/24 Source: Developed by Drs. Devonte Caraballo, Gypsy Smith, Jose Juan Hernandez and colleagues, with an educational nasrin from [employer]. Physical exam (Primary Care) Vital Signs: Last Vital Signs Pulse 91 11/01/24 10:35 Resp 12 11/01/24 10:35 BP 126/88 11/01/24 10:35 Pulse Ox 98 11/01/24 10:35 Oxygen Delivery Method Room Air 11/01/24 10:35 BMI result Body Mass Index 28.6 Tobacco/Smoking Status: Tobacco use Status Tobacco use date assessed 11/01/24 11/01/24 10:34 Patient Tobacco Use Status Never used Tobacco 11/01/24 10:34 e-Cigarette/Vaping Use Never Used 11/01/24 10:34 PHQ-9: PHQ-9 Score PHQ-9: Total score 8 11/01/24 10:34 Depression Screening Interpretation: Positive Thrive Assessment: Date of Thrive Assessment Date Thrive assessed 11/01/24 11/01/24 10:41 Currently or been in a relationship where the following occur: I choose not to answer Coding Level of Care Code Est Pt Level 4 (80018) Diagnoses History of lumbar surgery Z98.890 Degeneration of intervertebral disc of lumbosacral region with discogenic back pain and lower extremity pain M51.372 Disc-related pain type: discogenic back pain and lower extremity pain Tarlov cysts G96.191 Coccyx pain M53.3 Anxiety F41.9 Additional Codes PHQ-9 - 03131 - PHQ-9 Billing: Yes ([id number]) Assessment & Plan Assessment & Plan (1) History of lumbar surgery: Code(s): Z98.890 - Other specified postprocedural states Category: Surgical (2) DDD (degenerative disc disease), lumbosacral: Code(s): M51.37 - Other intervertebral disc degeneration, lumbosacral region Category: Medical Qualifiers: Disc-related pain type: discogenic back pain and lower extremity pain Qualified Code(s): M51.372 - Other intervertebral disc degeneration, lumbosacral region with discogenic back pain and lower extremity pain (3) Tarlov cysts: Code(s): G96.191 - Perineural cyst Category: Medical (4) Coccyx pain: Code(s): M53.3 - Sacrococcygeal disorders, not elsewhere classified Category: Medical (5) Anxiety: Code(s): F41.9 - Anxiety disorder, unspecified Category: Medical Plan 49 y/o for follow up chronic low back, pelvic pain Continues chronic opioid therapy-CSA signed Continue follow up PSS Anxiety is stable on current medications Orders: Orders MR pelvis wo/w con Today G57.02 - Lesion of sciatic nerve, left lower limb, G96.191 - Perineural cyst, M51.372 - Other intervertebral disc degeneration, lumbosacral region with discogenic back pain and lower extremity pain, M53.3 - Sacrococcygeal disorders, not elsewhere classified, Z98.890 - Other specified postprocedural states Medications: Refilled prednisone 40 mg (2 x 20 mg) PO DAILY 10 tabs 1RF tramadol 50 mg PO Q8H PRN 84 tabs 0RF pain
[2024-11-01 10:35] VITALS: BP 126/88; PULSE 91; RESP 12; O2SAT 98; BMI 28.6
--- OUTSIDE RECORDS SUMMARY | 2024-11-01 11:49 | XMS_ITS ---
Author Organization [facility] Address [address] [place] [address] Care Team Providers Care Manager Of Training Name Role Phone MARIBEL CEJA Unavailable [phone] QUIN CEJA Unavailable [phone] REASON FOR VISIT pt is here for [...] Active Encounters Encounter Location Date Provider Diagnosis [facility] [address] [place] [address] 02/04/2024 QUIN CEJA PLAN OF TREATMENT No Information MEDICATIONS ADMINISTERED Medication Instructions Date of Administration Dosage Notes Semaglutide 02/04/2024 0.5 mg Progress Notes * DEV ROQUEDOB: [birth year] (49 yo F)Acc No.[id number]:02/04/2024 Patient:??DEV ROQUE Provider:??Quin Ceja MD :1975?Age:49 Y?Sex:Fe male Date:02/04/2024 Address:[facility] [address], [facility] [id number] Subjective: * Chief Complaints: * ?1. Pt [...]
--- OUTSIDE RECORDS SUMMARY | 2024-11-01 11:49 | XMS_ITS | Data Portability ---
Author Organization [facility] [address] Address [address] [place] [address] Assessment No assessment recorded. Plan of Treatment Reminders Order Date Submit Date Provider Last Modified By Organization Details Last Modified Time Details Appointments None recorded. Lab None recorded. Referral None recorded. Procedures None recorded. Surgeries None recorded. Imaging None recorded. Medication Orders prednisone 10 mg tablet 2023 024 [facility] #[id number], [address] [place], [address], 19:24:00 Patient TargetsNo targets recorded. Patient Instructions Encounter Date Encounter Id Patient Instructions Last Modified By Organization Details Last Modified Time 02/20/2024 [id number] acute low back pain: exercises Not available 02/20/2024 21:11:52 low back pain: exercises Not available 02/20/2024 21:11:52 Reason for Referral None Reported. Problems Name Problem SNOMED Code Status Onset Date Resolution Date Notes Provider Name and Address Organization Details Recorded Time Low back pain co-occurre nt with neuralgia of left sciatic nerve 66661673741924 104 Active 2023 Luna Alvarez NP [address] , [place], [address], [facility] 17:33:36 Problem Notes None recorded. Medical Equipment None Reported. Allergies Allergen ID Allergen Name Allergen Category Reaction Reaction Severity Criticality Documentation Date Start Date Code Code System Note Provider Name and Address Organization Details Recorded Time 221987 amoxicill in medicatio n Not available Not [...] 96 % 95 /min 20 /min 10 37553.9 6 g 130 mm[Hg] 91 mm[Hg] [facility] 17:06:20 Social History Question Answer Notes LastModified by Pixspan[employer] ion Details LastModified Time Tobacco Smoking Status Never Smoker [facility] 02/20/2024 17:05:04 What Is Your Level [...] PF, 30 mcg/0.3 mL dose 03/02/2021 completed Mikaelajovan Mccall null, PA - [facility] 02/20/2024 17:01:45 Tdap 12/24/2019 completed Mikaelajovan Mccall null, PA - [facility] 02/20/2024 17:01:45 Hep B, adult 12/19/2016 completed Mikaelajovan clay null, PA - [facility] 02/20/2024 17:01:45 Past Encounters Encounter ID Performer Location Encounter Start Date Encounter Closed Date Diagnosis/Indication Diagnosis SNOMED-CT Code Diagnosis ICD10 Code Diagnosis [facility] [id number] [facility] [address] [place] [phone] 07/19/2017 14:10:22 07/19/2017 16:01:10 [id number] [facility] [address] [address] 05/12/2019 14:47:35 05/12/2019 16:19:56 [id number] Luna Alvarez [facility] [address] [place] [address] 02/20/2024 16:31:34 02/20/2024 17:36:21 Low back pain co-occurrent with neuralgia of left sciatic nerve [id number] 6958117 M54.42 Your urine test had few white [...] prescribe an antibiotic Thank you for using [employer] - please don't hesistate to call our [...] Stokes Member ID Guarantor Name 07/19/2017 1 [place] [facility] [id number] Armando Staley [id number] Jenny Staley 05/12/2019 1 [place] [facility] [place] [id number] Armando Staley [id number] Jenny Staley 02/20/2024 1 [place] [facility] [place] [id number] Armando Staley [id number] 23 Jenny Staley Notes Date Note Type Note [...] Alvarez NP [address] [place], [address], [place] - [facility] 02/20/2024 21:12:20 OBGyn Episode No OBEpisode recorded.
== END 2024-11-01 10:58 | disposition home or self-care (01) ==
LOC: HO.HMCFM 10:27
PROVIDERS: PCP Internal Medicine; Visit Provider Internal Medicine
DX: Z98.890 Other specified postprocedural states (principal); M51.372 Other intervertebral disc degeneration, lumbosacral region with discogenic back pain and lower extremity pain; G96.191 Perineural cyst; M53.3 Sacrococcygeal disorders, not elsewhere classified; F41.9 Anxiety disorder, unspecified

== ENCOUNTER → 2024-11-01 10:26 | Outpatient (BNVA) | payer BC, SELFPAY | PROVIDERS: PCP Internal Medicine; Visit Provider Internal Medicine | DX: M51.372 Other intervertebral disc degeneration, lumbosacral region with discogenic back pain and lower extremity pain (principal); G96.191 Perineural cyst; M53.3 Sacrococcygeal disorders, not elsewhere classified; G57.02 Lesion of sciatic nerve, left lower limb; F41.9 Anxiety disorder, unspecified; Z98.890 Other specified postprocedural states | CPT/HCPCS: 96127 ==

== ENCOUNTER 2024-11-01 11:00 | Outpatient (REF) | payer BC, SELFPAY ==
--- OUTSIDE RECORDS SUMMARY | 2024-11-01 12:39 | XMS_ITS ---
Author Organization [facility] Address [address] [place] [address] Care Team Providers Care Paper Carrier Name Role Phone MARIBEL CEJA Unavailable [phone] QUIN CEJA Unavailable [phone] REASON FOR VISIT Pt presents for sema [...] tive Encounters Encounter Location Date Provider Diagnosis [facility] [address] [place] [phone] 02/13/2024 QUIN CEJA PLAN OF TREATMENT No Information MEDICATIONS ADMINISTERED Medication Instructions Date of Administration Dosage Notes Semaglutide 02/13/2024 .25 mg Progress Notes * DEV ROQUEDOB: [birth year] (49 yo F)Acc No.[id number]:02/13/2024 Patient:??DEV ROQUE Provider:??Quin Ceja MD :1975?Age:49 Y?Sex:Fe male Date:02/13/2024 Address:[facility] [address], [facility], [place] Subjective: * Chief Complaints: * ?1. Pt [...]
--- OUTSIDE RECORDS SUMMARY | 2024-11-01 12:39 | XMS_ITS | Patient Health Record ---
Author Organization [facility] Address [address] [place] [address] Care Team Providers Care Headstart Teacher Name Role Phone MARIBEL AMARO Unavailable [phone] MARIKA AMARO Unavailable [phone] ALLERGIES No Known Allergies REASON FOR REFERRAL [...] Vitamin D deficiency, unspecified (E55.9) Active confirmed 00634168 Problem Other obesity (E66.8) Active confirmed Obesity (842642988) Problem Encounter for general adult medical examination without abnormal findings (Z00.00) Active confirmed 790368630 Problem BMI 31.0-31.9,adult (Z68.31) Active confirmed Body mass index 30.00 to 34.99 (099253849050 107) VITAL SIGNS Heart Rate 80 /min 12/10/2023 Blood pressure diastolic 90 mm Hg 12/10/2023 Oximetry 97 % 12/10/2023 Height 64 in 12/10/2023 Blood pressure systolic 130 mm Hg 12/10/2023 Weight 168.9 lbs 12/10/2023 BMI 28.99 kg/m2 12/10/2023 Encounters Encounter Location Date Provider Diagnosis [facility] [address] [place] [address] 12/24/[address] [facility] [address] [place] [address] 12/31/[address] [facility] [address] [place] [address] 01/05/[address] [facility] [address] [place] [address] 01/12/[address] [facility] [address] [place] [address] 01/21/[address] [facility] [address] [place] [address] 01/26/[address] [facility] [address] [place] [address] 02/04/[address] [facility] [address] [place] [address] 02/04/[address] [facility] [address] [place] [address] 02/13/[address] [facility] [address] [place] [address] 02/18/[address] [facility] [address] [place] [address] 12/10/2023 TALAL AMARO Back pain with radiculopathy M54.10 and Overweight (BMI 25.0-29.9) E66.[address] [place] [address] 11/14/2023 TALAL AMARO [address] [place] [address] 11/17/[address] [facility] [address] [place] [address] 12/08/[address] [place] [address] 12/08/2023 MARIKA AMARO [facility] [address] [place] [address] 12/10/2023 MARIKA AMARO [facility] [address] [place] [address] 12/24/2023 MARIKA AMARO ASSESSMENTS Encounter Date Diagnosis Assessment Notes Treatment Notes Treatment Clinical Notes Section Notes 12/10/2023 Overweight (BMI 25.0-29.9) (ICD-10 - E66.3) [...] SECA #Back pain: Pt follows up with [facility] for pain managment. Takes all pain meds [...] SECA #Back pain: Pt follows up with [facility] for pain managment. Takes all pain meds as prescribed. Pt instructed to continue with regiment as prescribed. Pt manages pain well and knows how to exercise without worsening symptoms. PLAN OF TREATMENT Pending Test Test Name Order Date COMPREHENSIVE METABOLIC PANEL 07/30/2023 CBC (INCLUDES DIFF/PLT) 07/30/2023 VITAMIN D,25-[place],TOTAL,IA 07/30/2023 Insurance Providers Payer Name Payer Address Payer Phone Subscriber Number Group Number Insured Name Patient Relationship to Insured Coverage Start Date Coverage End Date [facility] [address] [place] [address] [id number] DEV ROQUE Self - patient is the insured MEDICATIONS ADMINISTERED Medication Instructions Date of Administration Dosage Notes Semaglutide 07/30/2023 0.25 Semaglutide 08/08/2023 0.25 mg Semaglutide 08/19/2023 0.25 mg Semaglutide 08/27/2023 0.25 mg Semaglutide 09/05/2023 0.25 mg Semaglutide 09/16/2023 0.25 mg LRQ SQ Semaglutide 09/25/2023 0.5 Semaglutide 10/06/2023 0.25 mg lot# [id number] 0.25mg Semaglutide 10/13/2023 0.25 Semaglutide 10/21/2023 0.25 mg Semaglutide 01/05/2024 0.25 mg Semaglutide 01/12/2024 0.5 Semaglutide 01/21/2024 0.5 mg Semaglutide 02/04/2024 0.5 mg Semaglutide 02/13/2024 .25 mg Tirzepatide 12/10/2023 2.5 mg LRQ SQ MEDICAL (GENERAL) HISTORY Surgical History Surgery Date(Month/Year) breast implant removal 2 years dami joyner 17 years ago spine surgery
--- OUTSIDE RECORDS SUMMARY | 2024-11-01 12:40 | XMS_ITS ---
Author Organization [facility] Address [address] [place] [address] Care Team Providers Care Lumber Sorter Machine Name Role Phone MARIBEL CEJA Unavailable [phone] QUIN CEJA Unavailable [phone] Encounters Encounter Location Date Provider Diagnosis [facility] [address] [place] [address] 02/18/2024 QUIN CEJA PLAN OF TREATMENT No Information Progress Notes * DEV ROQUEDOB: [birth year] (49 yo F)Acc No.[id number]:02/18/2024 Patient:??DEV ROQUE Provider:??Quin Ceja MD :1975?Age:49 Y?Sex:Fe male Date:02/18/2024 [address] [place] [place] Subjective: * Chief Complaints: * ? * Medical History:?? Objective: Assessment: Plan: * Treatment: * Images: Billing Information: * Visit Code:?? * Procedure Codes:?? * Sign off status: Pending * Provider:??Quin Ceja MD Date:??02/17
[2024-11-01 14:41] LABS: MANUAL DIFF FLAG NO
[2024-11-01 14:54] LABS: Basophils Absolute Auto 0.1 X10*3/uL (0.0-0.2); Basophils Percent Auto 1.2 % (0-2); Eosinophils Absolute Auto 0.3 X10*3/uL (0.0-0.4); Eosinophils Percent Auto 4.3 % (0-4); Hematocrit 39.3 % (37.0-47.0); Hemoglobin 13.2 g/dl (12.0-16.0); Imm Gran Abs Auto 0.02 X10*3/uL (0.00-0.03); Imm Gran Pct Auto 0.3 % (0.0-0.4); Lymphocytes Percent Auto 28.8 % (20-40); Mean Corpuscular HGB Conc 33.6 g/dl (31.0-35.0); Mean Corpuscular Hemoglobin 31.9 pg (27.0-33.0); Mean Corpuscular Volume 94.9 fL (80.0-98.0); Mean Platelet Volume 9.6 fL (9.4-12.3); Monocytes Absolute Auto 0.5 X10*3/uL (0.1-1.2); Monocytes Percent Auto 7.8 % (2-11); Neutrophils Absolute Auto 3.9 x10*3/uL (2.0-8.3); Neutrophils Percent Auto 57.6 % (45-73); Platelet Count 310 X10*3/uL (160-400); Red Blood Count 4.14 X10*6/uL (4.20-5.50); White Blood Count 6.8 X10*3/uL (4.8-10.8)
[2024-11-01 15:13] LABS: Alanine Aminotransferase 23 U/L (0-31); Albumin Level 3.8 g/dL (3.5-5.0); Anion Gap 11 (12-20); Aspartate Amino Transferase 25 U/L (5-31); Bilirubin Total 0.4 mg/dL (0.0-1.0); Blood Urea Nitrogen 18 mg/dL (9-16); Calcium 8.9 mg/dL (8.4-10.2); Carbon Dioxide 28 mmol/L (22-29); Chloride 104 mmol/L (96-108); Estimated Glomerular Filt Rate > 60; Glucose Random 85 mg/dL (60-115); Potassium 4.5 mmol/L (3.3-5.1); Sodium 138 mmol/L (135-145); Total Protein 6.5 g/dL (6.5-8.0)
[2024-11-01 16:07] LABS: Alkaline Phosphatase 50 U/L (39-117)
== END 2024-11-01 11:01 | disposition home or self-care (01) ==
LOC: HO.WFDLDS 11:00
PROVIDERS: Visit Provider Internal Medicine
DX: M51.370 Other intervertebral disc degeneration, lumbosacral region with discogenic back pain only (principal); M53.3 Sacrococcygeal disorders, not elsewhere classified
CPT/HCPCS: 36415; 80053; 85025

== ENCOUNTER 2025-02-21 10:15 | Outpatient (REF) | payer BC, SELFPAY ==
[2025-02-21 14:09] LABS: MANUAL DIFF FLAG NO
[2025-02-21 14:23] LABS: Hematocrit 39.5 % (37.0-47.0); Hemoglobin 13.1 g/dl (12.0-16.0); Imm Gran Abs Auto 0.02 X10*3/uL (0.00-0.03); Imm Gran Pct Auto 0.4 % (0.0-0.4); Lymphocytes Absolute Auto 1.5 X10*3/uL (1.2-4.9); Mean Corpuscular HGB Conc 33.2 g/dl (31.0-35.0); Mean Corpuscular Hemoglobin 31.0 pg (27.0-33.0); Mean Corpuscular Volume 93.4 fL (80.0-98.0); NRBC Abs Auto 0.000 X10*3/uL (0.0-0.012); NRBC Pct Auto 0.0 /100WBC (0.0-0.2); Platelet Count 215 X10*3/uL (160-400); Red Blood Count 4.23 X10*6/uL (4.20-5.50); White Blood Count 5.3 X10*3/uL (4.8-10.8)
[2025-02-21 14:27] LABS: Appearance Urine Clear; Glucose Urine UA Negative (Negative); PH 7.0 (5.0-9.0); Specific Gravity - Urine <= 1.005 (1.005-1.025); UMIC TRIGGER UACC YES
[2025-02-21 14:53] LABS: Alanine Aminotransferase 26 U/L (0-31); Albumin Level 4.0 g/dL (3.5-5.0); Alkaline Phosphatase 55 U/L (39-117); Anion Gap 13 (12-20); Aspartate Amino Transferase 29 U/L (5-31); Blood Urea Nitrogen 16 mg/dL (9-16); Calcium 9.2 mg/dL (8.4-10.2); Carbon Dioxide 27 mmol/L (22-29); Chloride 105 mmol/L (96-108); Estimated Glomerular Filt Rate > 60; Potassium 4.6 mmol/L (3.3-5.1); Sodium 140 mmol/L (135-145); Total Protein 6.9 g/dL (6.5-8.0)
[2025-02-21 15:03] LABS: Folate 15.6 ng/mL (> or = 4.0); Vitamin B12 491 pg/mL (200-900)
== END 2025-02-21 10:16 | disposition home or self-care (01) ==
LOC: HO.WFDLDS 10:15
PROVIDERS: PCP Internal Medicine; Visit Provider Internal Medicine
DX: M51.372 Other intervertebral disc degeneration, lumbosacral region with discogenic back pain and lower extremity pain (principal); G57.02 Lesion of sciatic nerve, left lower limb; J01.00 Acute maxillary sinusitis, unspecified; G62.9 Polyneuropathy, unspecified; R53.83 Other fatigue; L65.9 Nonscarring hair loss, unspecified
CPT/HCPCS: 36415; 80053; 81001; 82607; 82746; 84443; 85025

== ENCOUNTER 2025-02-21 10:15 | Outpatient (AMB) | payer BC, SELFPAY ==
--- OUTSIDE RECORDS SUMMARY | 2024-02-13 05:00 | XMS_ITS ---
Author Organization [facility] Address [address] [place] [address] Care Team Providers Care Sack Lifter Name Role Phone MARIBEL CEJA Unavailable [phone] MARIKA CEJA Unavailable [phone] REASON FOR VISIT Pt presents for sema [...] Active Encounters Encounter Location Date [facility] [address] [place] [address] 02/13/2024 MARIKA CEJA Plan Of Treatment No Information Medications Administered Medication Instructions Date of Administration Dosage Notes Semaglutide 02/13/2024 .25 mg Progress Notes * DEV ROQUEDOB: 6 (50 yo F)Acc No.[id number]:02/13/2024 Patient: DEV PEREZ Provider: Jose A Ceja MD :1975 A ge:49 Y S ex:Female Date:02/13/2024 Address:[facility] [address], [facility], [place] Subjective: * Chief Complaints: * 1 . [...] Electronic signature of ASHLEY CEJA MD on 02/21/2025 at 11:21 AM EDT Sign off status: Pending * Provider: Jose A Ceja MD Date: 02/13/2024 Generated for Alta tobin/Riki/Toña on: 02/21/2025 11:21 AM EDT
--- NOTE | 2025-02-21 10:24 | MHC.PC.OV ---
Vital Signs 02/21/25 10:29 Height 5 ft 5 in Weight 169 lb 6 oz BMI 28.2 BP 128/82 Blood Pressure Location Lt brachial Position Sitting Respiration 12 Pulse 75 Pulse Source Pulse Oximeter Pulse Oximetry (%) 99 Oxygen Delivery Method Room Air Intake Visit Reasons: Medication follow up Intake Note: Medication follow up Environmental Marketer Required: No Allergies amoxicillin Allergy (Unknown, Verified 02/21/25 10:27) Unknown Tobacco use date assessed: 02/21/25 Dental Screening Dental Screen Date: 08/17/24 HPI HPI Comments History of Present Illness Details 50 year old female with a past medical history of chronic back pain, insomnia, anxiety presenting for for follow up MSK: left piriformis/SI pain, groin pain. On chronic opioid therapy which helps but pain levels are erratic during the day with the IR oxycodone. Does prefer tramadol before bed. She would like to streamline and feel less peaks and valleys painwise. She spends hours a day laying on her stomach because that is the position that the pain feels less. Has seen spine, physiatry and neurosurgery in the past. Had consultation with plastic surgery/client retention specialist in [place]. Continues to see PSS. She has chronic pelvic pain, chronic sacral pain. History of cyst removals s1,s2 in 2019. November 10 upcoming PSS. Recent L3-L5 MBB with some resolution of pain. She needs to have an updated MRI of the pelvis for her surgical consult Anxiety/insomnia: well controlled on current medications Head, ears have felt congested. Increased neck pain. She had a lot of post nasal drip with recent covid and continues to deal with this. Mammo-Jul 2023. DXA Colon cancer screening: Colonoscopy Wills 2021 PRINTED CIRCUIT BOARD PREASSEMBLER: Edilia Hernández upcoming Dr Craven ROS see HPI PHYSICAL EXAM: GENERAL: Alert and oriented x 3. NAD EYES: EOMI. Anicteric. HENT: Moist mucous membranes. No scleral icterus. No cervical lymphadenopathy. LUNGS: Clear to auscultation bilaterally. CARDIOVASCULAR: Regular rate and rhythm. No murmur. No JVD. ABDOMEN: Soft, non-tender +bs MSK: Tender coccyx, left piriformis on palpation. No redness or warmth. EXTREMITIES: No edema. Non-tender. SKIN: No rashes or lesions. Warm. NEUROLOGIC: No focal neurological deficits. CN II-XII grossly intact PSYCHIATRIC: Cooperative. Appropriate mood and affect [facility] Medical History Tarlov cysts Insomnia History of COVID-19 Chronic low back pain Anxiety Surgical History History of bilateral breast implants Status post lumbar surgery Family History Father Colonic polyp Stroke Social History Housing: House Patient Tobacco Use Status: Never used Tobacco e-Cigarette/Vaping Use: Never Used service: No Current occupational status: employed Current occupation: Administrative Current occupational exposures/hazards: No Cognitive needs: No Hearing needs: No Vision needs: No Questionnaire Thrive Questionnaire Date Thrive assessed: 08/11/24 I am a: Patient What is your living situation today?: I have a steady place to live Within the past 12 months, did the food you bought not last and you didn't have the money to get more?: Never true Within the past 12 months, did you worry whether your food would run out before you got money to buy more?: Never true Do you have trouble paying for medicines?: No Do you have trouble getting transportation to medical appointments?: No Do you have trouble paying your heating and electricity bill?: No Do you have trouble taking care of your child, family member or friend?: No Do you have trouble with day-to-day activities such as bathing, preparing meals, shopping, managing finances, etc.?: No Are you currently unemployed and looking for a job?: No Are you interested in more education?: No Please select the resources that you would like help with: None Currently or been in a relationship where the following occur: I choose not to answer THRIVE Score: 0 AUDIT C Alcohol Use Questionnaire (AUDIT-C) 1. How often do you have a drink containing alcohol?: Monthly or less (once every three months) 2. How many drinks containing alcohol do you have on a typical day when you are drinking?: 1 or 2 3. How often do you have six or more drinks on one occasion?: Never Total Score: 1 HENRY-7 AMB Questionnaire HENRY-7 Date HENRY - 7 assessed: 08/17/24 Source: Developed by DrsFartun Caraballo, Gypsy Smith, Jose Juan Hernandez and colleagues, with an educational nasrin from [employer]. Physical exam (Primary Care) Vital Signs: Last Vital Signs Pulse 75 02/21/25 10:29 Resp 12 02/21/25 10:29 BP 128/82 02/21/25 10:29 Pulse Ox 99 02/21/25 10:29 Oxygen Delivery Method Room Air 02/21/25 10:29 BMI result Body Mass Index 28.2 Tobacco/Smoking Status: Tobacco use Status Tobacco use date assessed 02/21/25 02/21/25 10:32 Patient Tobacco Use Status Never used Tobacco 02/21/25 10:32 e-Cigarette/Vaping Use Never Used 02/21/25 10:32 Thrive Assessment: Date of Thrive Assessment Date Thrive assessed 08/11/24 02/21/25 10:32 Currently or been in a relationship where the following occur: I choose not to answer Coding Level of Care Code Est Pt Level 4 (10266) Diagnoses Degeneration of intervertebral disc of lumbosacral region with discogenic back pain and lower extremity pain M51.372 Disc-related pain type: discogenic back pain and lower extremity pain Piriformis syndrome of left side G57.02 Subacute maxillary sinusitis J01.00 Sinusitis location: maxillary Chronicity: subacute Assessment & Plan Assessment & Plan (1) DDD (degenerative disc disease), lumbosacral: Code(s): M51.37 - Other intervertebral disc degeneration, lumbosacral region Category: Medical Qualifiers: Disc-related pain type: discogenic back pain and lower extremity pain Qualified Code(s): M51.372 - Other intervertebral disc degeneration, lumbosacral region with discogenic back pain and lower extremity pain (2) Piriformis syndrome of left side: Code(s): G57.02 - Lesion of sciatic nerve, left lower limb Category: Medical (3) Sinusitis: Code(s): J32.9 - Chronic sinusitis, unspecified Qualifiers: Sinusitis location: maxillary Chronicity: subacute Qualified Code(s): J01.00 - Acute maxillary sinusitis, unspecified Plan 50 year old female for follow up Ongoing low back and buttock/pelvic pain. MRI is ordered. She needs this to follow up with a nerve/plastic surgery. Overall pain is moderately controlled that said the short duration of oxycodone IR leaves her with inconsistency in pain control. She tried xtampza in the past and did not tolerate it. We will try morphine ER and see if we can improve basline control and decrease the amt of as needed/breakthrough meds Sinusitis-Azithromycin sent Orders: Orders Complete Blood Count Auto Diff Today G62.9 - Polyneuropathy, unspecified, L65.9 - Nonscarring hair loss, unspecified, R53.83 - Other fatigue Comprehensive Met. Panel Today G62.9 - Polyneuropathy, unspecified, L65.9 - Nonscarring hair loss, unspecified, R53.83 - Other fatigue Vitamin B12 and Folate Today G62.9 - Polyneuropathy, unspecified, L65.9 - Nonscarring hair loss, unspecified, R53.83 - Other fatigue UA CC w/rflx Micro + Cult Today R30.0 - Dysuria TSH reflex Free T4 Today G62.9 - Polyneuropathy, unspecified, L65.9 - Nonscarring hair loss, unspecified, R53.83 - Other fatigue Medications: New morphine ER Partial Fill upon patient request. 45 mg PO Q24H 30 caps 0RF naloxone 4 mg/actuation (Narcan) spray 1 dose into ONE nostril; alternate nostrils w each dose until help arrives 4 mg intranasal Q2M PRN 2 ea 0RF opioid overdose morphine ER Partial Fill upon patient request. Ok to dispense with oxycodone and tramadol 45 mg PO Q24H 7 caps 0RF G57.02 - Lesion of sciatic nerve, left lower limb, G62.9 - Polyneuropathy, unspecified, M51.372 - Other intervertebral disc degeneration, lumbosacral region with discogenic back pain and lower extremity pain azithromycin 500 mg PO DAILY 5 tabs 0RF 5 days
[2025-02-21 10:29] VITALS: BP 128/82; PULSE 75; RESP 12; O2SAT 99; BMI 28.2
--- OUTSIDE RECORDS SUMMARY | 2025-02-21 11:21 | XMS_ITS | Patient Health Record ---
Author Organization Zack Box MD Address [address] [place] [address] Care Team Providers Care Gauge Maker Apprentice Name Role Phone Patricio HUERTA, [place] Primary Care Provider UnaZack Swift Unavailable [phone] Reason For Referral No Information Problems Problem Type SNOMED Code ICD Code Onset Dates Problem Status W/U Status Risk Notes Problem Cervical spondylosis without myelopathy (876590550) Cervical spondylosis without myelopathy (M47.812) Active confirmed Problem Lumbar spondylosis (270253185) Lumbar spondylosis (M47.816) Active confirmed Problem Perineural cyst (disorder) (07564379) Tarlov cysts (G54.8) Active confirmed Plan Of Treatment No Information Insurance Providers Payer Name Payer Address Payer Phone Subscriber Number Group Number Insured Name Patient Relationship to Insured Coverage Start Date Coverage End Date [facility] [address] [place] [address] [id number] Coby Staley Self - patient is the insured Medical (General) History Surgical History Surgery Date(Month/Year) None
== END 2025-02-21 11:00 | disposition home or self-care (01) ==
LOC: HO.HMCFM 10:16
PROVIDERS: PCP Internal Medicine; Visit Provider Internal Medicine
DX: M51.372 Other intervertebral disc degeneration, lumbosacral region with discogenic back pain and lower extremity pain (principal); G57.02 Lesion of sciatic nerve, left lower limb; J01.00 Acute maxillary sinusitis, unspecified

== ENCOUNTER 2025-02-23 14:44 | Outpatient (AMB) | payer BC, SELFPAY ==
--- OUTSIDE RECORDS SUMMARY | 2024-02-04 06:30 | XMS_ITS ---
Author Organization [facility] Address [address] [place] [address] Care Team Providers Care Strategic Partner Development Manager Name Role Phone CEJA, MARIBEL Unavailable [phone] MARIKA CEJA Unavailable [phone] REASON FOR VISIT pt is here for [...] Active Encounters Encounter Location Date Provider Diagnosis [facility] [address] [place] [address] 02/04/2024 MARIKA CEJA Plan Of Treatment No Information Medications Administered Medication Instructions Date of Administration Dosage Notes Semaglutide 02/04/2024 0.5 mg Progress Notes * DEV ROQUEDOB: 6 (50 yo F)Acc No.[id number]:02/04/2024 Patient: DEV PEREZ Provider: Jose A Ceja MD :1975 A ge:49 Y S ex:Female Date:02/04/2024 Address:[address] [place], [place] Subjective: * Chief Complaints: * 1 . [...] Electronic signature of ASHLEY CEJA MD on 02/23/2025 at 04:04 PM EDT Sign off status: Pending * Provider: Jose A Ceja MD Date: 02/04/2024 Generated for Alta tobin/Riki/Toña on: 02/23/2025 04:04 PM EDT
--- OUTSIDE RECORDS SUMMARY | 2024-02-13 05:00 | XMS_ITS ---
[facility] Address [address] [place] [address] Care Team Providers Care Professional Healthcare Representative Name Role Phone MARIBEL CEJA Unavailable [phone] MARIKA CEJA Unavailable [phone] REASON FOR VISIT Pt presents for sema .25mg inj, tolerated well. Pt stated .5mg inj made her appetite too supressed & wanted to try biweekly injs. Medications Medication SIG (Take, Route, Fr equency, Duration) Notes Start Date End Date Status Glucosamine 750 MG as directed Orally Active Probiotic 250 MG as directed Orally Active Cymbalta 20 MG 1 capsule Orally Twice a day Active Iron 325 (65 Fe) MG 1 tablet Orally Thre e times a Week Active Baclofen 10 MG 1 tablet as needed O rally Twice a day Active traMADol HCl 50 MG 1 tablet as needed O rally Once a day Active oxyCODONE HCl 10 MG 1 tablet as needed O rally every 6 hrs Active Ondansetron HCl 4 MG 1 tablet as needed for nausea Orally Once a day; Duration: 30 days 12/10/2023 Active Encounters Encounter Location Date Provider [facility] [address] [place] [address] 02/13/2024 MARIKA CEJA Plan Of Treatment No Information Medications Administered Medication Instructions Date of Administration Dosage Notes Semaglutide 02/13/2024 .25 mg Progress Notes * DEV ROQUEDOB: 6 (50 yo F)Acc No.[id number]:02/13/2024 Patient: DEV PEREZ Provider: Jose A Ceja MD :1975 A ge:49 Y S ex:Female Date:02/13/2024 Address:[facility] [address], [facility], [id number] Subjective: * Chief Complaints: * 1 . Pt presents for sema .25mg inj, tolerated well. Pt stated .5mg inj made her appetite too supressed & wanted to try biweekly injs.. * Medical History: * Medications: T aking [...] * Treatment: * Therapeutic Injections: Semaglutide : .25 mg (Route: Subcutaneous) given by SERGEY MADRIGAL on subcutaneus * Images: Billing Information: * Visit Code: * Procedure Codes: * Electronic signature of ASHLEY CEJA MD on 02/23/2025 at 04:04 PM EDT Sign off status: Pending * Provider: Jose A Ceja MD Date: 02/13/2024 Generated for Alta tobin/Riki/Toña on: 02/23/2025 04:04 PM EDT
--- OUTSIDE RECORDS SUMMARY | 2024-02-18 10:00 | XMS_ITS ---
Author Organization [facility] [address] Address [address] [place] [address] Care Team Providers Care Financial Reporting Director Name Role Phone MARIBEL CEJA Unavailable [phone] MARIKA CEJA Unavailable [phone] Encounters Encounter Location Date Provider Diagnosis [facility] [address] [place] [address] 02/18/2024 MARIKA CEJA Plan Of Treatment No Information Progress Notes * DEV ROQUEDOB: 6 (50 yo F)Acc No.[id number]:02/18/2024 Patient: DEV PEREZ Provider: Jose A Ceja MD :1975 A ge:49 Y S ex:Female Date:02/18/2024 Address:[address] [facility] [id number] Subjective: * Chief Complaints: * * Medical History: Objective: * Vitals: Assessment: Plan: * Treatment: * Images: Billing Information: * Visit Code: * Procedure Codes: * Electronic signature of ASHLEY CEJA MD on 02/23/2025 at 04:05 PM EDT Sign off status: Pending * Provider: Jose A Ceja MD Date: 02/18/2024 Generated for Alta tobin/Riki/Toña on: 02/23/2025 04:05 PM EDT
[2025-02-23 14:46] VITALS: BP 132/74; PULSE 82; TEMP 36.8; O2SAT 95; BMI 28.0
--- NOTE | 2025-02-23 14:46 | AM.OFFWIN_ITS ---
Intake Vital Signs 02/23/25 14:46 Height 5 ft 5 in Weight 168 lb BMI 28.0 BP 132/74 Blood Pressure Location Lt brachial Position Sitting Pulse 82 Pulse Source Pulse Oximeter Temp 98.2 F Temp Source Oral Pulse Oximetry (%) 95 Oxygen Delivery Method Room Air Intake Visit Reasons: EP- sinus infection Intake Note: pt presents with sinus congestion and discomfort with post nasal drip, head pressure, headache, ear pain. S/S s/p taking zpak while on cymbalta. pt states she is s/p covd dx a little over a week ago Patient Tobacco Use Status: Never used Tobacco Allergies amoxicillin Allergy (Unknown, Verified 02/23/25 14:50) Unknown Do you need a note to return to daycare/school/sports/work: No HPI HPI Comments History of Present Illness Details History of Present Illness - The patient is a 50-year-old female pr esenting with symptoms suggestive of a sinus infection and concerns about medication interactions. - She reports persistent nasal congestio n and postnasal drip, which began prior to a recent COVID-19 infection. - Azithromycin was prescribed by her PCP and she took one dose yesterday but adverse effects occurred when taken with Cymbalta and oxycodone, including oral burning, agitation, and confusion. - The patient has chronic back pain telma ged with oxycodone and she was restarting her cymbalta. - She threw out the z-ivan and stopped ta jacquie the azithromycin and cymbalta. - called the pharmacy to ask about inter actions and was told that the med ications don't interact. - She has an allergy to amoxicillin, whi ch previously caused a seizure. - She called her PCP and was unable to s ee her today. - She continues with congestion, DOE, bur lizzy in the sinuses. - Has no fever or chills. Physical Exam General: Cooperative, healthy appearing, comfortable, no acute distress and well developed Head: Normal to inspection Ears: Hearing grossly normal bilaterally. No tragus or mastoid tenderness noted. Auditory canals clear bilaterally. TM's normal, not bulging. No fluid noted. Nose: Normal external nose present. Moist mucosa. Turbinates normal bilaterally, not boggy. Face and sinus: Tenderness to palpation of the frontal and maxillary sinuses bilaterally. Neck: Normal visual inspection and Yes full ROM. No lymphadenopathy noted. Resp iratory: Normal respiratory effort and able to speak in complete sentences. Clear to auscultation bilaterally Cardiovascular: Regular rate and rhythm. Normal S1 and S2 GI: Normal to inspection. Soft to palpation and nontender, nondistended. No guarding noted. Skin: No rashes or lesions noted [facility] Medical History Tarlov cysts Insomnia History of COVID-19 Chronic low back pain Anxiety Surgical History History of bilateral breast implants Status post lumbar surgery Family History Father Colonic polyp Stroke Social History Housing: House Patient Tobacco Use Status: Never used Tobacco e-Cigarette/Vaping Use: Never Used service: No Current occupational status: employed Current occupation: Administrative Current occupational exposures/hazards: No Cognitive needs: No Hearing needs: No Vision needs: No Review of Systems Const All systems reviewed & are unremarkable except as noted in HPI and below Physical Exam Vital Signs: Last Vital Signs Temp 98.2 F 02/23/25 14:46 Pulse 82 02/23/25 14:46 BP 132/74 02/23/25 14:46 Pulse Ox 95 02/23/25 14:46 Oxygen Delivery Method Room Air 02/23/25 14:46 BMI result Body Mass Index 28.0 Assessment & Plan Assessment & Plan (1) Sinusitis: Code(s): J32.9 - Chronic sinusitis, unspecified Qualifiers: Sinusitis location: maxillary Chronicity: acute Recurrence: non- recurrent Qualified Code(s): J01.00 - Acute maxillary sinusitis, unspecified (2) Medication reaction: Code(s): T50.905A - Adverse effect of unspecified drugs, medicaments and biological substances, initial encounter Qualifiers: Encounter type: initial encounter Qualified Code(s): T50.905A - Adverse effect of unspecified drugs, medicaments and biological substances, initial encounter Plan Most likely sinusitis and she had a medication reaction Plan - steam showers - tylenol or motrin as needed - z-ivan as directed - prednisone burst for 5 days - Advised to hold Cymbalta and hydroxyzine until completing the antibiotic course to prevent serotonin syndrome. - follow up with PCP Medications: New prednisone 40 mg (2 x 20 mg) PO DAILY 10 tabs 0RF 5 days azithromycin For 250 mg dose pack: take 500 mg today (day 1), then 250 mg for 4 days (days 2-5) PO 6 tabs 0RF Discontinued hydroxyzine HCl Discontinued Reason: Doctor's Order 50 mg PO QID 90 days 360 tabs 3RF Coding Level of Care Code Est Pt Level 3 (94556) Diagnoses Acute non-recurrent maxillary sinusitis J01.00 Sinusitis location: maxillary Chronicity: acute Recurrence: non-recurrent Adverse effect of drug, initial encounter T50.691N Encounter type: initial encounter
--- OUTSIDE RECORDS SUMMARY | 2025-02-23 16:05 | XMS_ITS | Patient Health Record ---
Author Organization Zack Box MD Address [address] [place] [address] 414 Care Team Providers Care Demonstrator Electric Gas Appliances Name Role Phone Patricio HUERTA, [place] Primary Care Provider UnaZack Swift Unavailable [phone] Reason For Referral No Information Problems Problem Type SNOMED Code ICD Code Onset Dates Problem Status W/U Status Risk Notes Problem Cervical spondylosis without myelopathy (400523396) Cervical spondylosis without myelopathy (M47.812) Active confirmed Problem Lumbar spondylosis (161469135) Lumbar spondylosis (M47.816) Active confirmed Problem Perineural cyst (disorder) (76261088) Tarlov cysts (G54.8) Active confirmed Plan Of Treatment No Information Insurance Providers Payer Name Payer Address Payer Phone Subscriber Number Group Number Insured Name Patient Relationship to Insured Coverage Start Date Coverage End Date [facility] [address] [place] [address] [phone] [id number] Coby Staley Self - patient is the insured Medical (General) History Surgical History Surgery Date(Month/Year) None
--- OUTSIDE RECORDS SUMMARY | 2025-02-23 16:05 | XMS_ITS | Patient Health Record ---
[facility] Organization [facility] Address [address] [place] [address] Care Team Providers Care Electrician Machine Shop Name Role Phone MARIBEL AMARO Unavailable [phone] Allergies No Known Allergies Reason For Referral No Information Medications Medication SIG (Take, Route, Fr equency, [...] needed O rally Twice a day Active Social History Tobacco Use: Social History Observation Description Date Details (start date - stop date) Never Smoker NA - NA Tobacco Use/Smoking Question Answer Notes Are you a nonsmoker Problems Problem Type SNOMED Code ICD Code Onset Dates Problem Status W/U Status Risk Notes Problem Vitamin D deficiency (78624533) Vitamin D deficiency, unspecified (E55.9) Active confirmed Problem Obesity (460405615) Other obesity (E66.8) Active confirmed Problem Adult health examination (254545741) Encounter for general adult medical examination without abnormal findings (Z00.00) Active confirmed Problem Body mass index 30.00 to 34.99 (648709524261516 ) BMI 31.0-31.9,adult (Z68.31) Active confirmed Plan Of Treatment Pending Test Test Name Order Date COMPREHENSIVE METABOLIC PANEL 07/30/2023 CBC (INCLUDES DIFF/PLT) 07/30/2023 VITAMIN D,25-OH,TOTAL,IA 07/30/2023 Insurance Providers Payer Name Payer Address Payer Phone Subscriber Number Group Number Insured Name Patient Relationship to Insured Coverage Start Date Coverage End Date [facility] [address] [place] [address] [id number] ROQUE Self - patient is the insured Medications Administered Medication Instructions Date of Administration Dosage Notes Semaglutide 07/30/2023 0.25 Semaglutide 08/08/2023 0.25 mg Semaglutide 08/19/2023 0.25 mg Semaglutide 08/27/2023 0.25 mg Semaglutide 09/05/2023 0.25 mg Semaglutide 09/16/2023 0.25 mg LRQ SQ Semaglutide 09/25/2023 0.5 Semaglutide 10/06/2023 0.25 mg lot# [id number] 0.25mg Semaglutide 10/13/2023 0.25 Semaglutide 10/21/2023 0.25 mg Semaglutide 01/05/2024 0.25 mg Semaglutide 01/12/2024 0.5 Semaglutide 01/21/2024 0.5 mg Semaglutide 02/04/2024 0.5 mg Semaglutide 02/13/2024 .25 mg Tirzepatide 12/10/2023 2.5 mg LRQ SQ Medical (General) History Surgical History Surgery Date(Month/Year) breast implant removal 2 years dami joyner 17 years ago spine surgery
== END 2025-02-23 16:02 | disposition home or self-care (01) ==
PROVIDERS: PCP Internal Medicine; Visit Provider Physician Assistant Medical
DX: J01.00 Acute maxillary sinusitis, unspecified (principal); T50.905A Adverse effect of unspecified drugs, medicaments and biological substances, initial encounter

== ENCOUNTER 2025-04-15 14:32 | Outpatient (AMB) | payer BC, SELFPAY ==
--- OUTSIDE RECORDS SUMMARY | 2023-12-24 06:15 | XMS_ITS ---
Author Organization [facility] Address [address] [place] [address] Care Team Providers Care Professor Of Engineering Name Role Phone MARIBEL CEJA Unavailable [phone] MARIKA CEJA Unavailable [phone] Medications Medication SIG (Take, Route, Fr equency, Duration) Notes Start Date End Date Status Baclofen 10 MG 1 tablet as needed O rally Twice a day Active Glucosamine 750 MG as directed Orally Active Cymbalta 20 MG 1 capsule Orally Twice a day Active Iron 325 (65 Fe) MG 1 tablet Orally Thre e times a Week Active oxyCODONE HCl 10 MG 1 tablet as needed O rally every 6 hrs Active Probiotic 250 MG as directed Orally Active Ondansetron HCl 4 MG 1 tablet as needed for nausea Orally Once a day; Duration: 30 days 12/10/2023 Active traMADol HCl 50 MG 1 tablet as needed O rally Once a day Active Encounters Encounter Location Date Provider Diagnosis [facility] [address] [place] [address] 12/24/2023 MARIKA CEJA Plan Of Treatment No Information Progress Notes * DEV ROQUEDOB: 6 (50 yo F)Acc No.[id number]:12/24/2023 Patient: DEV PEREZ Provider: Jose A Ceja MD :1975 A ge:48 Y S ex:Female Date:12/24/2023 Address:[address] [id number] Subjective: * Chief Complaints: * * Medical History: * Medications: T aking Probiotic 250 MG Capsule as directed Orally , Taking Glucosamine 750 MG Tablet as directed Orally , Taking Iron 325 (65 Fe) MG Tablet 1 tablet Orally Three times a Week , Taking Cymbalta 20 MG Capsule Delayed Release Particles 1 capsule Orally Twice a day , Taking Baclofen 10 MG Tablet 1 tablet as needed Orally Twice a day , Taking oxyCODONE HCl 10 MG Tablet 1 tablet as needed Orally every 6 hrs , Taking traMADol HCl 50 MG Tablet 1 tablet as needed Orally Once a day , Taking Ondansetron HCl 4 MG Tablet 1 tablet as needed for nausea Orally Once a day Objective: * Vitals: Assessment: Plan: * Treatment: * Images: Billing Information: * Visit Code: * Procedure Codes: * Electronic signature of ASHLEY CEJA MD on 04/15/2025 at 05:02 PM EDT Sign off status: Pending * Provider: Jose A Ceja MD Date: 0 12/24/2023 Generated for Alta tobin/Riki/Toña on: 05:02 PM EDT
--- OUTSIDE RECORDS SUMMARY | 2023-12-31 10:00 | XMS_ITS ---
Author Organization [facility] Address [address] [place] [address] Care Team Providers Care Pmp Certified Project Manager Name Role Phone MARIBEL CEJA Unavailable [phone] MARIKA CEJA Unavailable [phone] Medications Medication SIG (Take, Route, Fr equency, Duration) Notes Start Date End Date Status Ondansetron HCl 4 MG 1 tablet as needed for nausea Orally Once a day; Duration: 30 days 12/10/2023 Active traMADol HCl 50 MG 1 tablet as needed O rally Once a day Active Probiotic 250 MG as directed Orally Active oxyCODONE HCl 10 MG 1 tablet as needed O rally every 6 hrs Active Baclofen 10 MG 1 tablet as needed O rally Twice a day Active Glucosamine 750 MG as directed Orally Active Cymbalta 20 MG 1 capsule Orally Twice a day Active Iron 325 (65 Fe) MG 1 tablet Orally Thre e times a Week Active Encounters Encounter Location Date Provider Diagnosis [facility] [address] [place] [address] 12/31/2023 MARIKA CEJA Plan Of Treatment No Information Progress Notes * DEV ROQUEDOB: 6 (50 yo F)Acc No.[id number]:12/31/2023 Patient: DEV PEREZ Provider: Jose A Ceja MD :1975 A ge:48 Y S ex:Female Date:12/31/2023 Address:[address] [id number] Subjective: * Chief Complaints: * * Medical [...] * Vitals: Assessment: Plan: * Treatment: * Procedure Codes: 9 9199 NO SHOW OFFICE VISIT * Images: Billing Information: * Visit Code: * Procedure Codes: 04838 NO SHOW OFFICE VISIT. * Electronic signature of ASHLEY CEJA MD on 04/15/2025 at 05:03 PM EDT Sign off status: Pending * Provider: Jose A Ceja MD Date: 12/31/2023 Generated for Alta tobin/Riki/Toña on: 05:03 PM EDT
--- OUTSIDE RECORDS SUMMARY | 2024-01-05 05:45 | XMS_ITS ---
Author Organization [facility] [address] Address [address] [place] [address] Care Team Providers Care Anesthesiologist/Physician Name Role Phone CEJA, MARIBEL Unavailable [phone] MARIKA CEJA Unavailable [phone] REASON FOR VISIT pt is here for sema 0.25...pt signed consent and left the office in stable condition Medications Medication SIG (Take, Route, Fr equency, Duration) Notes Start Date End Date Status Ondansetron HCl 4 MG 1 tablet as needed for nausea Orally Once a day; Duration: 30 days 12/10/2023 Active Glucosamine 750 MG as directed Orally Active Probiotic 250 MG as directed Orally Active traMADol HCl 50 MG 1 tablet as needed O rally Once a day Active oxyCODONE HCl 10 MG 1 tablet as needed O rally every 6 hrs Active Iron 325 (65 Fe) MG 1 tablet Orally Thre e times a Week Active Baclofen 10 MG 1 tablet as needed O rally Twice a day Active Cymbalta 20 MG 1 capsule Orally Twice a day Active Encounters Encounter Location Date Provider Diagnosis [facility] [address] [place] [address] 01/05/2024 MARIKA CEJA Plan Of Treatment No Information Medications Administered Medication Instructions Date of Administration Dosage Notes Semaglutide 01/05/2024 0.25 mg Progress Notes * EDV ROQUEDOB: 6 (50 yo F)Acc No.[id number]:01/05/2024 Patient: DEV PEREZ Provider: Jose A Ceja MD :1975 A ge:48 Y S ex:Female Date:01/05/2024 Address:[address] [id number] Subjective: * Chief Complaints: * 1 . Pt is here for sema 0.25...pt signed consent and left the office in stable condition. * Medical History: * Medications: T aking [...] * Vitals: Assessment: Plan: * Treatment: * Therapeutic Injections: Semaglutide : 0.25 mg (Route: Subcutaneous) given by Ana Rodriguez on subcutaneus * Images: Billing Information: * Visit Code: * Procedure Codes: * Electronic signature of ASHLEY CEJA MD on 04/15/2025 at 05:03 PM EDT Sign off status: Pending * Provider: Jose A Ceja MD Date: 0 01/05/2024 Generated for Alta tobin/Riki/Toña on: 1 05:03 PM EDT
--- OUTSIDE RECORDS SUMMARY | 2024-01-12 07:30 | XMS_ITS ---
Author Organization [facility] Address [address] [place] [address] Care Team Providers Care Busher Helper Name Role Phone CEJA, MARIBEL Unavailable [phone] MARIKA CEJA Unavailable [phone] REASON FOR VISIT pt her for sema 0.5mg pt toelrted well consent form signed Medications Medication SIG (Take, Route, Fr equency, Duration) Notes Start Date End Date Status Baclofen 10 MG 1 tablet as needed O rally Twice a day Active oxyCODONE HCl 10 MG 1 tablet as needed O rally every 6 hrs Active Cymbalta 20 MG 1 capsule Orally Twice a day Active traMADol HCl 50 MG 1 tablet as needed O rally Once a day Active Ondansetron HCl 4 MG 1 tablet as needed for nausea Orally Once a day; Duration: 30 days 12/10/2023 Active Iron 325 (65 Fe) MG 1 tablet Orally Thre e times a Week Active Glucosamine 750 MG as directed Orally Active Probiotic 250 MG as directed Orally Active Encounters Encounter Location Date Provider Diagnosis [facility] [address] [place] [address] 01/12/2024 MARIKA CEJA Plan Of Treatment No Information Medications Administered Medication Instructions Date of Administration Dosage Notes Semaglutide 01/12/2024 0.5 Progress Notes * DEV ROQUEDOB: 6 (50 yo F)Acc No.[id number]:01/12/2024 Patient: DEV PEREZ Provider: Jose A Ceja MD :1975 A ge:48 Y S ex:Female Date:01/12/2024 Address:[address] [id number] Subjective: * Chief Complaints: * 1 . Pt her for sema 0.5mg pt toelrted well consent form signed. * Medical History: * Medications: T aking [...] * Treatment: * Therapeutic Injections: Semaglutide : 0.5 (Route: Subcutaneous) given by Lizy Bell on subcutaneus * Images: Billing Information: * Visit Code: * Procedure Codes: * Electronic signature of ASHLEY CEJA MD on 04/15/2025 at 05:02 PM EDT Sign off status: Pending * Provider: Jose A Ceja MD Date: 0 01/12/2024 Generated for Alta tobin/Rkii/Toña on: 1 05:02 PM EDT
--- OUTSIDE RECORDS SUMMARY | 2024-01-21 06:15 | XMS_ITS ---
Author Organization [facility] [address] Address [address] [place] [address] Care Team Providers Care Wire Turning Machine Operator Name Role Phone CEJA, MARIBEL Unavailable [phone] MARIKA CEJA Unavailable [phone] REASON FOR VISIT pt is here for sema 0.5....pt signed consent and left the office in stable condition Medications Medication SIG (Take, Route, Fr equency, Duration) Notes Start Date End Date Status Ondansetron HCl 4 MG 1 tablet as needed for nausea Orally Once a day; Duration: 30 days 12/10/2023 Active Probiotic 250 MG as directed Orally Active Iron 325 (65 Fe) MG 1 tablet Orally Thre e times a Week Active Glucosamine 750 MG as directed Orally Active traMADol HCl 50 MG 1 tablet as needed O rally Once a day Active Baclofen 10 MG 1 tablet as needed O rally Twice a day Active Cymbalta 20 MG 1 capsule Orally Twice a day Active oxyCODONE HCl 10 MG 1 tablet as needed O rally every 6 hrs Active Encounters Encounter Location Date Provider Diagnosis [facility] [address] [place] [address] 01/21/2024 MARIKA CEJA Plan Of Treatment No Information Medications Administered Medication Instructions Date of Administration Dosage Notes Semaglutide 01/21/2024 0.5 mg Progress Notes * DEV ROQUEDOB: 6 (50 yo F)Acc No.[id number]:01/21/2024 Patient: DEV PEREZ Provider: Jose A Ceja MD :1975 A ge:49 Y S ex:Female Date:01/21/2024 Address:[address] [id number] Subjective: * Chief Complaints: * 1 . Pt is here for sema 0.5....pt signed consent and left the office in [...] Treatment: * Therapeutic Injections: Semaglutide : 0.5 mg (Route: Subcutaneous) given by Ana Rodriguez on subcutaneus * Images: Billing Information: * Visit Code: * Procedure Codes: * Electronic signature of ASHLEY CEJA MD on 04/15/2025 at 05:02 PM EDT Sign off status: Pending * Provider: Jose A Ceja MD Date: 0 01/21/2024 Generated for Alta tobin/Riki/Toña on: 05:02 PM EDT
--- OUTSIDE RECORDS SUMMARY | 2024-01-26 06:15 | XMS_ITS ---
Author Organization [facility] Address [address] [place] [address] Care Team Providers Care Solar Sales Associate Name Role Phone MARIBEL CEJA Unavailable [phone] MARIKA CEJA Unavailable [phone] Medications Medication SIG (Take, Route, Fr equency, Duration) Notes Start Date End Date Status Glucosamine 750 MG as directed Orally Active Iron 325 (65 Fe) MG 1 tablet Orally Thre e times a Week Active Cymbalta 20 MG 1 capsule Orally Twice a day Active Baclofen 10 MG 1 [...] a day; Duration: 30 days 12/10/2023 Active Encounters Encounter Location Date Provider Diagnosis [facility] [address] [place] [address] 01/26/2024 MARIKA CEJA Plan Of Treatment No Information Progress Notes * DEV ROQUEDOB: 6 (50 yo F)Acc No.[id number]:01/26/2024 Patient: DEV PEREZ Provider: Jose A Ceja MD :1975 A ge:49 Y S ex:Female Date:01/26/2024 Address:[address] [id number] Subjective: * Chief Complaints: * * Medical [...] Information: * Visit Code: * Procedure Codes: 12001 NO SHOW OFFICE VISIT. * Electronic signature of ASHLEY CEJA MD on 04/15/2025 at 05:02 PM EDT Sign off status: Pending * Provider: Jose A Ceja MD Date: 0 01/26/2024 Generated for Alta tobin/Riki/Toña on: 05:02 PM EDT
--- OUTSIDE RECORDS SUMMARY | 2024-02-04 06:15 | XMS_ITS ---
Author Organization [facility] Address [address] [place] [address] Care Team Providers Care Development Disability Specialist Name Role Phone PREM MARIBEL Unavailable [phone] MARIKA CEJA Unavailable [phone] Medications Medication SIG (Take, Route, Fr equency, Duration) Notes Start Date End Date Status traMADol HCl 50 MG 1 tablet as needed O rally Once a day Active oxyCODONE HCl 10 MG 1 tablet as needed O rally every 6 hrs Active Baclofen 10 MG 1 tablet as needed O rally Twice a day Active Cymbalta 20 MG 1 capsule Orally Twice a day Active Ondansetron HCl 4 MG 1 tablet as needed for nausea Orally Once a day; Duration: 30 days 12/10/2023 Active Probiotic 250 MG as directed Orally Active Iron 325 (65 Fe) MG 1 tablet Orally Thre e times a Week Active Glucosamine 750 MG as directed Orally Active Encounters Encounter Location Date Provider Diagnosis [facility] [address] [place] [address] 02/04/2024 MARIKA CEJA Plan Of Treatment No Information Progress Notes * DEV ROQUEDOB: 6 (50 yo F)Acc No.[id number]:02/04/2024 Patient: DEV PEREZ Provider: Jose A Ceja MD :1975 A ge:49 Y S ex:Female Date:02/04/2024 Address:[address] [id number] Subjective: * Chief Complaints: * * Medical [...] Provider: Jose A Ceja MD Date: 0 02/04/2024 Generated for Alta tobin/Riki/Toña on: 05:03 PM EDT
--- OUTSIDE RECORDS SUMMARY | 2024-02-04 06:30 | XMS_ITS ---
Author Organization [facility] Address [address] [place] [address] Care Team Providers Care Senior Systems Software Engineer Name Role Phone CEJA, MARIBEL Unavailable [phone] MARIKA CEJA Unavailable [phone] REASON FOR VISIT pt is here for [...] Active Encounters Encounter Location Date Provider Diagnosis [facility] [address] [place] [address] 02/04/2024 MARIKA CEJA Plan Of Treatment No Information Medications Administered Medication Instructions Date of Administration Dosage Notes Semaglutide 02/04/2024 0.5 mg Progress Notes * DEV ROQUEDOB: 6 (50 yo F)Acc No.[id number]:02/04/2024 Patient: DEV PEREZ Provider: Jose A Ceja MD :1975 A ge:49 Y S ex:Female Date:02/04/2024 Address:[address] [id number] Subjective: * Chief Complaints: * 1 . [...] 0 02/04/2024 Generated for Alta tobin/Riki/Toña on: 05:02 PM EDT
--- OUTSIDE RECORDS SUMMARY | 2024-02-13 05:00 | XMS_ITS ---
Author Organization [facility] Address [address] [place] [address] Care Team Providers Care Media Consultant Name Role Phone MARIBEL CEJA Unavailable [phone] MARIKA CEJA Unavailable [phone] REASON FOR VISIT Pt presents for sema [...] Active Encounters Encounter Location Date Provider [facility] [address] [place] [address] 02/13/2024 MARIKA CEJA Plan Of Treatment No Information Medications Administered Medication Instructions Date of Administration Dosage Notes Semaglutide 02/13/2024 .25 mg Progress Notes * DEV ROQUEDOB: 6 (50 yo F)Acc No.[id number]:02/13/2024 Patient: DEV PEREZ Provider: Jose A Ceja MD :1975 A ge:49 Y S ex:Female Date:02/13/2024 Address:[facility] [address], [facility], [place] Subjective: * Chief Complaints: * 1 . [...] of ASHLEY CEJA MD on 04/15/2025 at 05:01 PM EDT Sign off status: Pending * Provider: Jose A Ceja MD Date: 0 02/13/2024 Generated for Alta tobin/Riki/Toña on: 1 05:01 PM EDT
--- OUTSIDE RECORDS SUMMARY | 2024-02-18 10:00 | XMS_ITS ---
Author Organization [facility] [address] Address [address] [place] [address] Care Team Providers Care Neonatal Critical Care Nurse Name Role Phone MARIBEL CEJA Unavailable [phone] MARIKA CEJA Unavailable [phone] Encounters Encounter Location Date Provider Diagnosis [facility] [address] [place] [address] 02/18/2024 MARIKA CEJA Plan Of Treatment No Information Progress Notes * DEV ROQUEDOB: 6 (50 yo F)Acc No.[id number]:02/18/2024 Patient: DEV PEREZ Provider: Jose A Ceja MD :1975 A ge:49 Y S ex:Female Date:02/18/2024 Address:[address] [facility] [id number] Subjective: * Chief Complaints: * * Medical History: Objective: * Vitals: Assessment: Plan: * Treatment: * Images: Billing Information: * Visit Code: * Procedure Codes: * Electronic signature of ASHLEY CEJA MD on 04/15/2025 at 05:02 PM EDT Sign off status: Pending * Provider: Jose A Cjea MD Date: 0 02/18/2024 Generated for Alta tobin/Riki/Toña on: 05:02 PM EDT
--- NOTE | 2025-04-15 14:34 | MHC.PC.OV ---
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 On chronic opioid therapy which helps but pain levels are erratic during the day with the IR oxycodone. Does prefer tramadol before bed. She would like to streamline and feel less peaks and valleys painwise. Has seen spine, physiatry and neurosurgery in the past. Had consultation with plastic surgery/client relation specialist in [place] and has an upcoming appointment. Continues to see PSS. She has chronic pelvic pain, chronic sacral pain. History of cyst removals s1,s2 in 2018. November 10 upcoming PSS. Plastic surgery suspects nerve impingement and has recommended MRI sacrum/pelvis. Anxiety/insomnia: well controlled on current medications Mammo-Jul 2023. She is unsure if she had repeat in 2024 Colon cancer screening: Colonoscopy [place] 2021 FOOD CLERK: saw Dr Craven last week ROS see HPI PHYSICAL EXAM: GENERAL: Alert and oriented x 3. NAD EYES: EOMI. Anicteric. HENT: Moist mucous membranes. No scleral icterus. No cervical lymphadenopathy. LUNGS: Clear to auscultation bilaterally. CARDIOVASCULAR: Regular rate and rhythm. No murmur. No JVD. ABDOMEN: Soft, non-tender +bs MSK: Tender coccyx, left piriformis on palpation. No redness or warmth. EXTREMITIES: No edema. Non-tender. SKIN: No rashes or lesions. Warm. NEUROLOGIC: No focal neurological deficits. CN II-XII grossly intact PSYCHIATRIC: Cooperative. Appropriate mood and affect [facility] Medical History Tarlov cysts Insomnia History of COVID-19 Chronic low back pain Anxiety Surgical History History of bilateral breast implants Status post lumbar surgery Family History Father Colonic polyp Stroke Social History Housing: House Alcohol intake: never Patient Tobacco Use Status: Never used Tobacco e-Cigarette/Vaping Use: Never Used Second Hand Smoke Exposure: No service: No Current occupational status: employed Current occupation: Administrative Current occupational exposures/hazards: No Cognitive needs: No Hearing needs: No Vision needs: No Questionnaire Thrive Questionnaire Date Thrive assessed: 08/11/24 HENRY-7 AMB Questionnaire HENRY-7 Date HENRY - 7 assessed: 08/17/24 Source: Developed by Drs. Devonte Caraballo, Gypsy Smiht, Jose Juan Hernandez and colleagues, with an educational nasrin from [employer]. Physical exam (Primary Care) Vital Signs: Last Vital Signs Temp 97.8 F 04/15/25 14:41 Pulse 77 04/15/25 14:41 Resp 16 04/15/25 14:41 BP 122/82 04/15/25 14:41 Pulse Ox 98 04/15/25 14:41 Oxygen Delivery Method Room Air 04/15/25 14:41 BMI result Body Mass Index 27.8 Tobacco/Smoking Status: Tobacco use Status Tobacco use date assessed 02/21/25 04/15/25 14:34 Patient Tobacco Use Status Never used Tobacco 04/15/25 14:40 e-Cigarette/Vaping Use Never Used 04/15/25 14:40 Thrive Assessment: Date of Thrive Assessment Date Thrive assessed 08/11/24 04/15/25 14:34 Coding Level of Care Code Est Pt Prev Care 40-64y(60163) Diagnoses Physical exam Z00.00 Degeneration of intervertebral disc of lumbosacral region with discogenic back pain and lower extremity pain M51.372 Disc-related pain type: discogenic back pain and lower extremity pain Sacral pain M53.3 Chronic pelvic pain in female R10.20; G89.29 Anxiety F41.9 Assessment & Plan Assessment & Plan (1) Physical exam: Code(s): Z00.00 - Encounter for general adult medical examination without abnormal findings (2) DDD (degenerative disc disease), lumbosacral: Code(s): M51.37 - Other intervertebral disc degeneration, lumbosacral region Category: Medical Qualifiers: Disc-related pain type: discogenic back pain and lower extremity pain Qualified Code(s): M51.372 - Other intervertebral disc degeneration, lumbosacral region with discogenic back pain and lower extremity pain (3) Sacral pain: Code(s): M53.3 - Sacrococcygeal disorders, not elsewhere classified Category: Medical (4) Chronic pelvic pain in female: Code(s): R10.20 - Pelvic and perineal pain unspecified side; G89.29 - Other chronic pain Category: Medical (5) Anxiety: Code(s): F41.9 - Anxiety disorder, unspecified Category: Medical Plan CPE Interval history reviewed preventive measures for age discussed Continues to follow with pss and plastic surgery for chronic low back, sacral pelvic pain. Also seeing manager shell. Continue current medications [place] meloxicam. Insomnia is stable on zolpidem Medications: New meloxicam 15 mg PO DAILY 90 tabs 3RF Refilled tramadol partial fill upon patient request 50 mg PO Q8H PRN 84 tabs 0RF pain M51.372 - Other intervertebral disc degeneration, lumbosacral region with discogenic back pain and lower extremity pain
[2025-04-15 14:41] VITALS: BP 122/82; PULSE 77; RESP 16; TEMP 36.6; O2SAT 98; BMI 27.8
--- OUTSIDE RECORDS SUMMARY | 2025-04-15 17:02 | XMS_ITS | Patient Health Record ---
Author Organization Zack Box MD Address [address] [place] [address] 847 Care Team Providers Care Bioinformatics Associate Name Role Phone Patricio HUERTA, [place] Primary Care Provider UnaZack Swift Unavailable [phone] Reason For Referral No Information Problems Problem Type SNOMED Code ICD Code Onset Dates Problem Status W/U Status Risk Notes Problem Cervical spondylosis without myelopathy (012529017) Cervical spondylosis without myelopathy (M47.812) Active confirmed Problem Lumbar spondylosis (815883222) Lumbar spondylosis (M47.816) Active confirmed Problem Perineural cyst (disorder) (01520572) Tarlov cysts (G54.8) Active confirmed Plan Of Treatment No Information Insurance Providers Payer Name Payer Address Payer Phone Subscriber Number Group Number Insured Name Patient Relationship to Insured Coverage Start Date Coverage End Date [facility] [address] [place] [address] [phone] [id number] Coby Staley Self - patient is the insured Medical (General) History Surgical History Surgery Date(Month/Year) None
--- OUTSIDE RECORDS SUMMARY | 2025-04-15 17:03 | XMS_ITS | Patient Health Record ---
Author Organization [facility] Address [address] [place] [address] Care Team Providers Care Furniture Assembly Supervisor Name Role Phone MARIBEL AMARO Unavailable [phone] Allergies No Known Allergies Reason For Referral [...] Status Risk Notes Problem Vitamin D deficiency (75159619) Vitamin D deficiency, unspecified (E55.9) Active confirmed Problem Obesity (265301357) Other obesity (E66.8) Active confirmed Problem Adult health examination (623601831) Encounter for general adult medical examination without abnormal findings (Z00.00) Active confirmed Problem Body mass index 30.00 to 34.99 (046591284347815 ) BMI 31.0-31.9,adult (Z68.31) Active confirmed Plan Of Treatment Pending Test Test Name Order Date COMPREHENSIVE METABOLIC PANEL 07/30/2023 CBC (INCLUDES DIFF/PLT) 07/30/2023 VITAMIN D,25-OH,TOTAL,IA 07/30/2023 Insurance Providers Payer Name Payer Address Payer Phone Subscriber Number Group Number Insured Name Patient Relationship to Insured Coverage Start Date Coverage End Date [facility] [address] [place] [address] [id number] ROQUE Self - patient is the insured Medications Administered Medication Instructions Date of Administration Dosage Notes Semaglutide 07/30/2023 0.25 Semaglutide 08/08/2023 0.25 mg Semaglutide 08/19/2023 0.25 mg Semaglutide 08/27/2023 0.25 mg Semaglutide 09/05/2023 0.25 mg Semaglutide 09/16/2023 0.25 mg LRQ SQ Semaglutide 09/25/2023 0.5 Semaglutide 10/06/2023 0.25 mg lot# [id number] 0.25mg Semaglutide 10/13/2023 0.25 Semaglutide 10/21/2023 0.25 mg Semaglutide 01/05/2024 0.25 mg Semaglutide 01/12/2024 0.5 Semaglutide 01/21/2024 0.5 mg Semaglutide 02/04/2024 0.5 mg Semaglutide 02/13/2024 .25 mg Tirzepatide 12/10/2023 2.5 mg LRQ SQ Medical (General) History Surgical History Surgery Date(Month/Year) breast implant removal 2 years dami joyner 17 years ago spine surgery
== END 2025-04-15 15:16 | disposition home or self-care (01) ==
LOC: HO.HMCFM 14:32
PROVIDERS: PCP Internal Medicine; Visit Provider Internal Medicine
DX: Z00.00 Encounter for general adult medical examination without abnormal findings (principal); M51.372 Other intervertebral disc degeneration, lumbosacral region with discogenic back pain and lower extremity pain; M53.3 Sacrococcygeal disorders, not elsewhere classified; R10.20 Pelvic and perineal pain unspecified side; G89.29 Other chronic pain; F41.9 Anxiety disorder, unspecified